=== PATIENT | male | born 1965 | race Caucasian/White ===

== ENCOUNTER 2019-12-27 07:48 | Inpatient (IN) | payer OTHER, SELFPAY ==
[2019-12-27] MEDS ORDERED: NA CHLORIDE 0.9% 3,000 ML ONE (20:14)
[2019-12-27] MEDS ORDERED: CEFTRIAXONE/SWI 1gm 1 GM/10 ML SYR ONE (20:14)
[2019-12-27] MEDS ORDERED: FAMOTIDINE 20 MG/2 ML VIAL IV ONE (20:14)
[2019-12-27] MEDS ORDERED: LIDOCAINE 1% MPF 30 ML VIAL ONE (20:29)
[2019-12-27] MEDS ORDERED: INSULIN -REGULAR HUMAN 50 UNIT/0.5 ML ML ONE ×2 (20:46→21:38)
[2019-12-27] MEDS ORDERED: LIDOCAINE VISCOUS 2% SOLN 15 ML UDC ONE (21:09)
[2019-12-27 21:17] LABS: Protime INR 1.02
[2019-12-27 21:32] LABS: Urine Blood 2+ (NEG); Urine Glucose 2+ (NEG); Urine Protein TRACE (NEG)
[2019-12-27 21:33] LABS: ALT/SGPT 33 U/L (12-78); AST/SGOT 14 U/L (15-37); Albumin 3.6 g/dL (3.4-5.0); Alkaline Phosphatase 138 U/L (45-117); BUN Blood Urea Nitrogen 79 mg/dL (7-18); Bilirubin Direct 0.2 mg/dL (0-0.2); Bilirubin Total 0.6 mg/dL (0.2-1.0); Lipase 4801 U/L (73-393); NT PRO-BNP 1418 pg/mL (<125); Protein, Total 7.5 g/dL (6.4-8.2); Sodium Level 124 mmol/L (136-145); Troponin (Emerg Dept Use Only) < 0.02 ng/mL (0.0-0.045)
[2019-12-27 21:37] LABS: Bicarbonate 5 mmol/L (21-32); Glucose Level 1242 mg/dL (74-106); Potassium 5.7 mmol/L (3.5-5.1)
[2019-12-27 21:38] LABS: Arterial Blood Carboxyhemoglob 1.6 % (0-1.5); Blood Gas Oxyhemoglobin 95.1 % (94-97); Blood O2 Saturation 97.6 % (92-98.5)
[2019-12-27 21:38] LABS: Magnesium 3.6 mg/dL (1.8-2.4)
[2019-12-27] MEDS ORDERED: NA CHLORIDE 0.9% 100 ML IV ONE (21:39)
[2019-12-27 21:48] LABS: Basophils % 0.4 % (0-1.3)
[2019-12-27 21:55] LABS: Absolute Lymphocytes (CBC) 1.6 K/uL (0.7-4.9); Hematocrit 49.2 % (39.6-49.0); Lymphocytes % 6.2 % (15.3-44.8); MPV 10.1 fL (7.6-11.3); RBC Red Blood Cell Count 5.12 M/uL (4.33-5.43)
[2019-12-27 22:19] LABS: Blood Morphology Comment NOT SEEN (NOT SEEN); Platelet Estimate ADEQ
[2019-12-27] MEDS ORDERED: ONDANSETRON 4 MG/2 ML VIAL ONE (23:12)
[2019-12-27 23:19] LABS: Potassium 5.1 mmol/L (3.5-5.1)
--- NOTE | 2019-12-27 23:43 | EDPHYS ---
Physician Documentation [facility] Name: Chicho De Los Santos Age: 54 yrs Sex: Male : 1965 Arrival Date: 12/27/2019 Time: 19:53 Bed 3 Private MD: ED Physician Alfredo Sanchez HPI: 12/26 21:26 This 54 yrs old Male presents to ER via EMS with complaints of High Blood lizzie Sugar. 21:26 This 54 yrs old Male presents to ER via EMS with complaints of High Blood lizzie Sugar. 21:26 The patient or guardian reports decreased level of consciousness, generalized fatigue, lizzie generalized weakness, hyperglycemia, polyuria. Onset: The symptoms/episode began/occurred 3 day(s) ago. Associated signs and symptoms: Pertinent positives: polydipsia. Current symptoms: In the emergency department the patient's symptoms have improved, mildly. The patient has not experienced similar symptoms in the past. Historical: - Allergies: 22:17 No Known Allergies; lp1 - Immunization history:: Adult Immunizations unknown. - Family history:: not pertinent. - Social history:: Smoking status: unknown. ROS: 21:29 Eyes: Negative for injury, pain, redness, and discharge, ENT: Negative for injury, lizzie pain, and discharge, Abdomen/GI: Negative for abdominal pain, nausea, vomiting, diarrhea, and constipation, Back: Negative for injury and pain, : Negative for injury, bleeding, discharge, and swelling, MS/Extremity: Negative for injury and deformity, Psych: Negative for depression, anxiety, suicide ideation, homicidal ideation, and hallucinations, Allergy/Immunology: Negative for hives, rash, and allergies, Hematologic/Lymphatic: Negative for swollen nodes, abnormal bleeding, and unusual bruising. 21:29 Constitutional: Positive for malaise, poor PO intake. 21:29 Cardiovascular: Positive for palpitations. 21:29 Respiratory: Positive for shortness of breath. 21:29 Neuro: Positive for altered mental status. 21:29 Unable to obtain ROS due to altered mental status, patient distress. Exam: 21:29 Head/Face: Normocephalic, atraumatic. Eyes: Pupils equal round and reactive to light, lizzie extra-ocular motions intact. Lids and lashes normal. Conjunctiva and sclera are non-icteric and not injected. Cornea within normal limits. Periorbital areas with no swelling, redness, or edema. ENT: Nares patent. No nasal discharge, no septal abnormalities noted. Tympanic membranes are normal and external auditory canals are clear. Oropharynx with no redness, swelling, or masses, exudates, or evidence of obstruction, uvula midline. Mucous membranes moist. Neck: Trachea midline, no thyromegaly or masses palpated, and no cervical lymphadenopathy. Supple, full range of motion without nuchal rigidity, or vertebral point tenderness. No Meningismus. Chest/axilla: Normal chest wall appearance and motion. Nontender with no deformity. No lesions are appreciated. Back: No spinal tenderness. No costovertebral tenderness. Full range of motion. Male : Normal genitalia with no discharge or lesions. MS/ Extremity: Pulses equal, no cyanosis. Neurovascular intact. Full, normal range of motion. Psych: Awake, alert, with orientation to person, place and time. Behavior, mood, and affect are within normal limits. 21:29 Constitutional: The patient appears in obvious distress, moderately distressed. 21:29 ENT: Mouth: Oral mucosa: dry, Posterior pharynx: no acute changes, Airway: normal, no evidence of obstruction. 21:29 Cardiovascular: Rate: tachycardic, Rhythm: regular, Pulses: Pulses are 3+ in bilateral radial, brachial, femoral, popliteal, posterior tibial and and dorsalis pedis arteries.. Heart sounds: normal, Edema: is not appreciated, JVD: is not appreciated. 21:29 Respiratory: moderate respiratory distress is noted, Respirations: labored breathing, that is moderate, Breath sounds: are clear throughout, Respiratory rate: 30 21:29 Abdomen/GI: Inspection: distension, Bowel sounds: active, Liver: no appreciated palpable abnormalities, Hernia: not appreciated. 21:39 Neuro: Orientation: to person, Not oriented to place, time, situation, Mentation: slow lizzie to respond, confused, Memory: unable to test, Cranial nerves: grossly normal, is grossly normal based on the patient's age, no acute changes, Cerebellar function: is grossly normal based on the patient's age, no acute changes, unable to test, Motor: moves all fours, Gait: not tested. seizure activity, is not displayed by the patient. Vital Signs: 19:56 BP 94 / 70; Pulse 99; Resp 30; Pulse Ox 96% on R/A; Weight 101.15 kg; Height 5 ft. 11 ea in. (180.34 cm); 20:00 BP 105 / 66; Pulse 99; Resp 35; Pulse Ox 99% on 2 lpm NC; rv 20:00 Temp 97.5(A); ea 20:32 BP 95 / 61; Pulse 97; Resp 30; Pulse Ox 99% on 2 lpm NC; rv 21:57 BP 135 / 72; Pulse 99; Resp 28; Pulse Ox 99% ; ea 22:54 BP 151 / 70; Pulse 98; Resp 26; Temp 95.4; Pulse Ox 98% on R/A; ea 23:19 BP 134 / 70; Pulse 99; Resp 24; Pulse Ox 99% on R/A; Pain 0/10; rv 23:20 BP 142 / 72; Pulse 97; Resp 24; Pulse Ox 100% ; ea 23:46 Temp 95.7; ea 12/27 01:07 BP 142 / 81; Pulse 97; Resp 23; Temp 96.7; Pulse Ox 99% ; ea 12/26 19:56 Body Mass Index 31.10 (101.15 kg, 180.34 cm) Procedures: 12/26 21:33 Central Line: the site was prepped with Betadine, in sterile fashion, a triple lumen lizzie catheter was inserted, in the right femoral vein, in 3 attempts. placement was verified, arterial puncture with bleeding, immediate pressure applied,good hemostasis. sandbags applied, the patient tolerated the procedure, well. 21:37 Central Line: another central line was attempted on the left side without difficulty lizzie under sterile conditions. MDM: 19:57 Patient medically screened. [facility] 21:39 Data reviewed: vital signs, nurses notes, lab test result(s), EKG, radiologic studies, lizzie CT scan, plain films. 12/26 19:59 Order name: Basic Metabolic Panel; Complete Time: 21:41 [facility] 12/26 19:59 Order name: CBC with Diff; Complete Time: 22:21 lizzie 12/26 19:59 Order name: LFT's; Complete Time: 21:41 lizzie 12/26 19:59 Order name: Magnesium; Complete Time: 21:41 [facility] 12/26 19:59 Order name: NT PRO-BNP; Complete Time: 21:41 [facility] 12/26 19:59 Order name: PT-INR; Complete Time: 21:41 [facility] 12/26 19:59 Order name: Troponin (emerg Dept Use Only); Complete Time: 21:41 [facility] 12/26 19:59 Order name: Lipase; Complete Time: 21:41 [facility] 12/26 19:59 Order name: ABG; Complete Time: 21:53 [facility] 12/26 19:59 Order name: Blood Culture Adult (2) [facility] 12/26 19:59 Order name: Urine Culture [facility] 12/26 20:07 Order name: Glucose, Ancillary Testing; Complete Time: 20:14 EDMS 12/26 20:14 Order name: Lactate; Complete Time: 21:41 [facility] 12/26 21:30 Order name: Urine Dipstick--Ancillary (enter results); Complete Time: 21:41 lp 12/26 22:19 Order name: Manual Differential; Complete Time: 22:21 EDMS 12/26 22:34 Order name: Triglycerides Level; Complete Time: 05:40 EDMS 12/26 22:44 Order name: Glucose, Ancillary Testing; Complete Time: 22:59 EDNE 12/26 22:57 Order name: Glucose 12/26 23:00 Order name: Chem 7; Complete Time: 23:35 [facility] 12/27 00:08 Order name: Acetone Level; Complete Time: 05:40 EDMS 12/27 00:08 Order name: Basic Metabolic Panel; Complete Time: 05:40 EDMS 12/27 00:08 Order name: Basic Metabolic Panel; Complete Time: 05:40 EDMS 04 00:09 Order name: Calcium Level EDMS 12/27 00:09 Order name: CBC with Automated Diff; Complete Time: 05:40 EDMS 12/27 00:09 Order name: Lipase; Complete Time: 05:40 EDMS 12/27 00:09 Order name: Magnesium; Complete Time: 05:40 EDMS 12/27 00:09 Order name: Phosphorus; Complete Time: 05:40 EDMS 12/27 00:10 Order name: NT PRO-BNP; Complete Time: 05:40 EDMS 12/27 00:10 Order name: Troponin I; Complete Time: 05:40 EDMS 12/26 19:59 Order name: XRAY Chest (1 view) [facility] 12/26 19:59 Order name: EKG; Complete Time: 20:01 [facility] 12/26 21:43 Order name: CT Traumagram (Head C Spine CAP wo con) [facility] 12/27 00:09 Order name: CONS Pharmacy Consult EDNE 12/27 00:09 Order name: NPO EDNE 12/27 00:40 Order name: Glucose 12/27 00:46 Order name: Glucose, Ancillary Testing; Complete Time: 05:40 EDNE 12/27 01:31 Order name: ABG ea 12/27 01:49 Order name: ABG Arterial Blood Gas; Complete Time: 05:40 EDNE 12/27 02:59 Order name: Glucose, Ancillary Testing; Complete Time: 05:40 EDNE 12/27 03:15 Order name: Glucose Level; Complete Time: 05:40 EDNE 12/27 03:55 Order name: Glucose 12/27 04:01 Order name: Glucose, Ancillary Testing; Complete Time: 05:40 EDNE 12/27 04:33 Order name: Glucose Level; Complete Time: 05:40 EDNE 12/27 05:25 Order name: Alcohol Serum/Plasma; Complete Time: 05:40 EDNE 12/27 05:47 Order name: Glucose, Ancillary Testing; Complete Time: 07:06 [facility] 12/27 07:01 Order name: Glucose, Ancillary Testing; Complete Time: 07:06 [facility] 12/27 07:28 Order name: RAD [facility] 12/26 19:59 Order name: Cardiac monitoring; Complete Time: 20:54 [facility] 12/26 19:59 Order name: EKG - Nurse/Tech; Complete Time: 20:54 [facility] 12/26 19:59 Order name: IV Saline Lock; Complete Time: 21:24 [facility] 12/26 19:59 Order name: Labs collected and sent; Complete Time: 20:54 [facility] 12/26 19:59 Order name: O2 Per Protocol; Complete Time: 20:54 [facility] 12/26 19:59 Order name: O2 Sat Monitoring; Complete Time: 20:54 [facility] 12/26 19:59 Order name: Urine Dipstick-Ancillary (obtain specimen); Complete Time: 21:30 [facility] 12/26 20:01 Order name: Central Line Kit; Complete Time: 20:09 [facility] 12/26 20:14 Order name: Moise; Complete Time: 20:54 [facility] Administered Medications: 21:15 Drug: NS 0.9% 1000 ml Route: IV; Rate: 1 bolus; Site: left femoral; ea 22:10 Follow up: IV Status: Completed infusion; IV Intake: 1000ml ea 21:15 Drug: NS 0.9% 1000 ml Route: IV; Rate: 1 bolus; Site: left femoral; ea 22:10 Follow up: Response: No adverse reaction; IV Status: Completed infusion; IV Intake: ea 1000ml 21:15 Drug: NS 0.9% 1000 ml Route: IV; Rate: 1 bolus; Site: left femoral; ea 22:10 Follow up: Response: No adverse reaction; IV Status: Completed infusion; IV Intake: ea 1000ml 21:20 Drug: Pepcid 20 mg Route: IVP; Site: left femoral; ea 23:30 Follow up: Response: No adverse reaction ea 21:24 Drug: Rocephin 1 grams Route: IV; Rate: per protocol; Site: left femoral; ea 22:21 Follow up: IV Status: Completed infusion ea 22:10 Drug: Insulin Regular Human 10 units {Co-Signature: william (Maximilian Dao RN).} Route: ea IVP; Site: left forearm; 23:00 Follow up: Response: No adverse reaction ea 22:24 Drug: NS 0.9% 1000 ml Route: IV; Rate: 125 ml/hr; Site: left femoral; ea 12/27 02:20 Follow up: IV Status: Completed infusion; Infusion continued upon admission 12/26 22:25 Drug: Meropenem 1 grams Route: IV; Rate: per protocol; Site: left femoral; ea 23:18 Follow up: IV Status: Completed infusion; IV Intake: 100ml rv 22:25 Drug: NS 0.9% 1000 ml Route: IV; Rate: 1 bolus; Site: left femoral; 12/27 01:00 Follow up: Response: No adverse reaction; IV Status: Completed infusion; IV Intake: ea 1000ml 12/26 23:19 Drug: Insulin Drip - (Insulin Regular Human 100 units, NS 0.9% 100 ml) {Co-Signature: akil thomas (Maximilian Dao RN).} Route: IV; Rate: calculated rate; Site: left femoral; 12/27 02:20 Follow up: IV Status: Infusion continued upon admission 12/26 23:20 Drug: Zofran (Ondansetron) 4 mg Route: IVP; Site: left femoral; ea 04/12 02:20 Follow up: Response: No adverse reaction ea 00:33 Drug: Zofran (Ondansetron) 4 mg Route: IVP; Site: left femoral; ea 01:16 Follow up: Response: No adverse reaction; Nausea unchanged ea 01:16 Drug: Phenergan 12.5 mg Route: IVP; Site: left femoral; ea 02:19 Follow up: Response: No adverse reaction ea 02:19 Follow up: Response: Vomiting decreased ea Disposition: 12/27/19 23:42 Hospitalization ordered by Karson Kerr for Inpatient Admission. Preliminary diagnosis are Altered mental status, unspecified, Diabetes mellitus due to underlying condition with ketoacidosis without coma, Elevated white blood cell count, Acute kidney failure, Hypotension, Hypothermia, Hyperkalemia, Acidosis - metabolic, Vomiting. - Bed requested for Intensive Care Unit. - Status is Inpatient Admission. sv - Condition is Serious. - Problem is new. - Symptoms have improved. Signatures: Dispatcher [employer] EDMS Frannie Reyes RN RN sv Webb, Martha RN Alfredo Lucero MD MD cha Pena, Laura, RN RN lp1 Abby Pierce RN Maximilian Ureña ea, RN RN rv Maximilian Dao RN rv Corrections: (The following items were deleted from the chart) 12/26 21:55 20:15 Head Brain Wo [id number].RAD.BRZ ordered. EDNE EDMS 22:43 22:34 Triglycerides Level ordered. EDNE EDNE 12/27 00:30 12/26 23:42 Hospitalization Ordered by Karson Kerr MD for Inpatient Admission. [facility] Preliminary diagnosis is Altered mental status, unspecified; Diabetes mellitus due to underlying condition with ketoacidosis without coma; Elevated white blood cell count; Acute kidney failure; Hypotension; Hypothermia; Hyperkalemia; Acidosis - metabolic. Bed requested for Intensive Care Unit. Status is Inpatient Admission. Condition is Serious. Problem is new. Symptoms have improved. [facility] 12/27 01:34 00:30 12/27/2019 23:42 Hospitalization Ordered by Karson Kerr MD for Inpatient Admission. Preliminary diagnosis is Altered mental status, unspecified; Diabetes mellitus due to underlying condition with ketoacidosis without coma; Elevated white blood cell count; Acute kidney failure; Hypotension; Hypothermia; Hyperkalemia; Acidosis - metabolic; Vomiting. Bed requested for Intensive Care Unit. Status is Inpatient Admission. Condition is Serious. Problem is new. Symptoms have improved. lizzie 05:31 01:34 12/27/2019 23:42 Hospitalization Ordered by Karson Kerr MD for Inpatient mw Admission. Preliminary diagnosis is Altered mental status, unspecified; Diabetes mellitus due to underlying condition with ketoacidosis without coma; Elevated white blood cell count; Acute kidney failure; Hypotension; Hypothermia; Hyperkalemia; Acidosis - metabolic; Vomiting. Bed requested for [facility] ER HOLD. Status is Inpatient Admission. Condition is Serious. Problem is new. Symptoms have improved. mw 07:47 05:31 12/27/2019 23:42 Hospitalization Ordered by Karson Kerr MD for Inpatient sv Admission. Preliminary diagnosis is Altered mental status, unspecified; Diabetes mellitus due to underlying condition with ketoacidosis without coma; Elevated white blood cell count; Acute kidney failure; Hypotension; Hypothermia; Hyperkalemia; Acidosis - metabolic; Vomiting. Bed requested for Intensive Care Unit. Status is Inpatient Admission. Condition is Serious. Problem is new. Symptoms have improved. mw
--- NOTE | 2019-12-27 23:43 | ER ---
Nurse's Notes [facility] Name: Chicho De Los Santos Age: 54 yrs Sex: Male : 1965 Arrival Date: 12/27/2019 Time: 19:53 Bed 3 Private MD: Diagnosis: Altered mental status, unspecified;Diabetes mellitus due to underlying condition with ketoacidosis without coma;Elevated white blood cell count;Acute kidney failure;Hypotension;Hypothermia;Hyperkalemia;Acidosis-metabolic;Vomiting Presentation: 12/26 19:56 Chief complaint: EMS states: Pt reports he has been vomiting since Sunday. EMS ea reports pt BGL read error, was hypotensive and tachypneic upon arrival. IO started on left humerus 1 L of NS was infused per EMS. Pt reports he is border line diabetic. Coronavirus screen: Proceed with normal triage. Ebola Screen: No symptoms or risks identified at this time. Initial Sepsis Screen: Does the patient meet any 2 criteria? No. Patient's initial sepsis screen is negative. Does the patient have a suspected source of infection? No. Patient's initial sepsis screen is negative. Risk Assessment: Do you want to hurt yourself or someone else? Patient reports no desire to harm self or others. Onset of symptoms was December 27, 2019. 19:56 Method Of Arrival: EMS: [facility] ea 19:56 Acuity: KIT 3 ea Triage Assessment: 20:03 General: Appears uncomfortable, Behavior is cooperative. Pain: Denies pain. ea Respiratory: Airway is patent Respiratory pattern is Kussmaul. Derm: Skin is pale, Skin temperature is cool. Historical: - Allergies: 22:17 No Known Allergies; lp1 - Immunization history:: Adult Immunizations unknown. - Family history:: not pertinent. - Social history:: Smoking status: unknown. Screenin:01 Abuse screen: Denies threats or abuse. Nutritional screening: No deficits noted. ea Tuberculosis screening: No symptoms or risk factors identified. Fall Risk IV access (20 points). Assessment: 20:00 General: Appears in no apparent distress. ill, Behavior is restless. rv 20:00 Pain: Denies pain. Neuro: Level of Consciousness is awake, alert. Cardiovascular: rv Patient's skin is warm and dry. Respiratory: Airway is patent Respiratory pattern is tachypnea mouth breather. 21:00 Neuro: Level of Consciousness is confused. rv 21:00 Reassessment: patient was restless during central insertion. rv 21:47 Reassessment: patient taken to CT scan. Abby RN with the patient. rv 22:25 Reassessment: Pt responds to verbal stimulus, and answers questions appropriately, pt ea is alert and oriented to self, place and situation. Respiration rate improved. Denies pain at this time. 23:27 Reassessment: Patient and/or family updated on plan of care and expected duration. Pain ea level reassessed. Pt resting with eyes closed, respirations improving. Pt responds to verbal stimulus, denies pain at this time. Pt reports nausea, medication order obtained, medication administered, pt tolerated well. 12/27 00:30 Reassessment: Patient and/or family updated on plan of care and expected duration. Pain ea level reassessed. Pt resting with eyes closed, pt respirations tachypneic but improved from initial rate. Pt denies pain at this time. Vital Signs: 12/26 19:56 BP 94 / 70; Pulse 99; Resp 30; Pulse Ox 96% on R/A; Weight 101.15 kg; Height 5 ft. 11 ea in. (180.34 cm); 20:00 BP 105 / 66; Pulse 99; Resp 35; Pulse Ox 99% on 2 lpm NC; rv 20:00 Temp 97.5(A); ea 20:32 BP 95 / 61; Pulse 97; Resp 30; Pulse Ox 99% on 2 lpm NC; rv 21:57 BP 135 / 72; Pulse 99; Resp 28; Pulse Ox 99% ; ea 22:54 BP 151 / 70; Pulse 98; Resp 26; Temp 95.4; Pulse Ox 98% on R/A; ea 23:19 BP 134 / 70; Pulse 99; Resp 24; Pulse Ox 99% on R/A; Pain 0/10; rv 23:20 BP 142 / 72; Pulse 97; Resp 24; Pulse Ox 100% ; ea 23:46 Temp 95.7; ea 12/27 01:07 BP 142 / 81; Pulse 97; Resp 23; Temp 96.7; Pulse Ox 99% ; ea 12/26 19:56 Body Mass Index 31.10 (101.15 kg, 180.34 cm) ea ED Course: 12/26 19:53 Patient arrived in ED. cl3 19:57 Alfredo Sanchez MD is Attending Physician. lizzie 20:01 Triage completed. ea 20:01 Maintain EMS IV. IO to left humerus. IV is patent. Patient maintains SpO2 saturation ea greater than 95% on room air. 20:02 Arm band placed on right wrist. Patient placed in an exam room, on a stretcher, on ea pulse oximetry. 20:02 Patient has correct armband on for positive identification. Bed in low position. Call ea light in reach. 20:47 Missed attempt(s): 20 gauge in left antecubital area. rv 21:00 Assisted provider with central line placement. Set up central line tray. Triple lumen ea line placed in left femoral. Line placed by Alfredo Sanchez MD Placement verified by blood return, Dressed with Tegaderm, Blood was collected. Patient tolerated well. 21:25 Abby Pierce, RN is Primary Nurse. ea 21:30 Moise cath inserted, using sterile technique, 16 Fr., Patient tolerated well. rv 21:36 Notified ED physician of a critical lab result(s). abnormal labs of sg glucose,magnesium,creatinine,potassium, and CO2. 21:56 Notified ED physician of a critical lab result(s). WBC 25.6. lp1 22:01 CT Traumagram (Head C Spine CAP wo con) In Process Unspecified. EDMS 22:08 XRAY Chest (1 view) In Process Unspecified. EDMS 22:27 Thermoregulation: Gabriela blanket applied. rv 23:19 Notified ED physician of a critical lab result(s). CO2 6, Glucose 956. lp1 23:36 Karson Kerr MD is Hospitalizing Provider. [facility] 12/27 01:16 Patient admitted, IV remains in place. ea Administered Medications: 12/26 21:15 Drug: NS 0.9% 1000 ml Route: IV; Rate: 1 bolus; Site: left femoral; ea 22:10 Follow up: IV Status: Completed infusion; IV Intake: 1000ml ea 21:15 Drug: NS 0.9% 1000 ml Route: IV; Rate: 1 bolus; Site: left femoral; ea 22:10 Follow up: Response: No adverse reaction; IV Status: Completed infusion; IV Intake: ea 1000ml 21:15 Drug: NS 0.9% 1000 ml Route: IV; Rate: 1 bolus; Site: left femoral; ea 22:10 Follow up: Response: No adverse reaction; IV Status: Completed infusion; IV Intake: ea 1000ml 21:20 Drug: Pepcid 20 mg Route: IVP; Site: left femoral; ea 23:30 Follow up: Response: No adverse reaction ea 21:24 Drug: Rocephin 1 grams Route: IV; Rate: per protocol; Site: left femoral; ea 22:21 Follow up: IV Status: Completed infusion ea 22:10 Drug: Insulin Regular Human 10 units {Co-Signature: william (Maximilian Dao RN).} Route: ea IVP; Site: left forearm; 23:00 Follow up: Response: No adverse reaction ea 22:24 Drug: NS 0.9% 1000 ml Route: IV; Rate: 125 ml/hr; Site: left femoral; ea 12/27 02:20 Follow up: IV Status: Completed infusion; Infusion continued upon admission ea 12/26 22:25 Drug: Meropenem 1 grams Route: IV; Rate: per protocol; Site: left femoral; ea 23:18 Follow up: IV Status: Completed infusion; IV Intake: 100ml rv :25 Drug: NS 0.9% 1000 ml Route: IV; Rate: 1 bolus; Site: left femoral; rv 12/27 01:00 Follow up: Response: No adverse reaction; IV Status: Completed infusion; IV Intake: ea 1000ml 12/26 23:19 Drug: Insulin Drip - (Insulin Regular Human 100 units, NS 0.9% 100 ml) {Co-Signature: akil thomas (Maximilian Dao RN).} Route: IV; Rate: calculated rate; Site: left femoral; 12/27 02:20 Follow up: IV Status: Infusion continued upon admission ea 12/26 23:20 Drug: Zofran (Ondansetron) 4 mg Route: IVP; Site: left femoral; ea 12/27 02:20 Follow up: Response: No adverse reaction ea 00:33 Drug: Zofran (Ondansetron) 4 mg Route: IVP; Site: left femoral; ea 01:16 Follow up: Response: No adverse reaction; Nausea unchanged ea 01:16 Drug: Phenergan 12.5 mg Route: IVP; Site: left femoral; ea 02:19 Follow up: Response: No adverse reaction ea 02:19 Follow up: Response: Vomiting decreased ea Intake: 12/26 22:10 IV: 1000ml; Total: 1000ml. ea 22:10 IV: 1000ml; Total: 2000ml. ea 22:10 IV: 1000ml; Total: 3000ml. ea 23:18 IV: 100ml; Total: 3100ml. rv 23:24 IV: 4000ml; Total: 7100ml. rv 12/27 01:00 IV: 1000ml; Total: 8100ml. ea Output: 12/26 23:24 Urine: 750ml; Total: 750ml. rv Outcome: 23:42 Decision to Hospitalize by Provider. lizzie 12/27 00:00 Instructed on the need for admit. ea 02:19 Admitted to ER Hold. Please see [facility] for further documentation. ea 02:19 Condition: stable 07:47 Patient left the ED. sv Signatures: Dispatcher [employer] Frannie Beltre RN Ritchie Magaña RN Alfredo Hernandez MD MD cha Pena, Laura RN RN lp1 Abby Pierce RN RN ea Vicente, Ronaldo, RN RN rv Lewis, Charde cl3 Maximilian thomas
[2019-12-28] MEDS ORDERED: NACHLORIDE 0.45% 1,000 ML IV SCH ×2 (00:02→00:10)
[2019-12-28] MEDS ORDERED: MORPHINE 2 MG/ML SYR IV PRN (00:07)
[2019-12-28] MEDS ORDERED: INSULIN -REGULAR HUMAN 100 UNIT in NA CHLORIDE 0.9% 100 ML IV SCH (00:15)
--- NOTE | 2019-12-28 00:16 | P.HP ---
Certification for Inpatient Patient admitted to: Inpatient With expected LOS: >2 Midnights Patient will require the following post-hospital care: None Practitioner: I am a practitioner with admitting privileges, knowledge of patient current condition, hospital course, and medical plan of care. Services: Services provided to patient in accordance with Admission requirements found in Title 42 Section 412.3 of the Code of Federal Regulations Patient History Date of Service: 12/27/19 Reason for admission: DKA History of Present Illness: Patient is a 54-year-old gentleman who came to the hospital with shortness of breath. Patient had also been confused. According to the patient he has been having intractable nausea and vomiting for the last 3 days. He came into the hospital because he was short of breath and very confused. In the emergency room his workup revealed that he was severely acidotic and in diabetic ketoacidosis. Patient was hydrated and started on an insulin drip. His blood sugars were greater than 1200. Will need to lower this down slowly because of the uncertainty as to how long his sugars have been this high. Risk of cerebral edema if not corrected gradually. Will monitor neurologic status closely. He does answer most of my questions appropriately. But he is very lethargic. The nurse states that he has been responding to her appropriately as well. Patient's BNP was also found to be elevated. He denies any history of cardiac disease. Will need to monitor his volume status closely as normally we would aggressively hydrate patient in diabetic ketoacidosis, but will need to monitor his BNP and he will need a echocardiogram prior to discharge to evaluate his cardiac status. Troponin is within normal limits. Incidentally, patient did have an elevated lipase level. We will check his alcohol level and we will get official report of CT scan. At this time he will be admitted to ICU for close observation. Allergies No Known Allergies Allergy (Unverified 12/28/19 02:26) - Past Medical/Surgical History Past Medical History: Patient denies medical history Past Surgical History: Patient denies surgical history - Family History Father Family History: Reviewed- Non-Contributory - Social History Smoking Status: Current every day smoker Alcohol use: No CD- Drugs: No Review of Systems 10-point ROS is otherwise unremarkable Physical Examination - Vital Signs Temperature: 99 F Blood Pressure: 120/80 Pulse: 110 Respirations: 18 Pulse Ox (%): 96 - Physical Exam General: Alert, In no apparent distress, Oriented x3, Acute distress, Confused HEENT: Atraumatic, PERRLA, Mucous membr. moist/pink, EOMI, Sclerae nonicteric Neck: Supple, 2+ carotid pulse no bruit, No LAD, Without JVD or thyroid abnormality Respiratory: Clear to auscultation bilaterally, Normal air movement Cardiovascular: Regular rate/rhythm, Normal S1 S2, No murmurs Gastrointestinal: Normal bowel sounds, Soft and benign, Non-distended, Tender ness (epigastric) Musculoskeletal: No clubbing, No swelling, No tenderness Integumentary: No rashes Neurological: Normal speech, Normal tone, Sensation intact, Cranial nerves 3-12 intact, Abnormal gait, Abnormal strength, Abnormal affect Lymphatics: No axilla or inguinal lymphadenopathy - Studies Laboratory Data (last 24 hrs) 12/27/19 22:33: Triglycerides Cancelled 12/27/19 22:30: Sodium 133 L, Potassium 5.1, BUN 77 H, Creatinine 3.89 H, Glucose 956 H* 12/27/19 21:40: WBC 25.6 H*, Hgb 14.6, Hct 49.2 H, Plt Count 219 12/27/19 21:00: PT 12.0, INR 1.02 12/27/19 21:00: Sodium 124 L, Potassium 5.7 H*, BUN 79 H, Creatinine 4.61 H, Glucose 1242 H*, Magnesium 3.6 H*, Total Bilirubin 0.6, AST 14 L, ALT 33, Alkaline Phosphatase 138 H, Lipase 4801 H Assessment & Plan - Problems (Diagnosis) (1) DKA (diabetic ketoacidoses) Current Visit: Yes Status: Acute (2) Acute pancreatitis Current Visit: Yes Status: Acute (3) OSIEL (acute kidney injury) Current Visit: Yes Status: Acute (4) Elevated brain natriuretic peptide (BNP) level Current Visit: Yes Status: Acute - Plan Plan: 1. IV hydration; monitor renal function closely; if no improvement then Nephrology consult 2. Insulin drip; gradually lower BS by roughly 100mg/dl every hr 3. Monitor electrolytes closely; monitor lipase and check TG 4. Replace electrolytes as needed 5. Changed IV fluids to D51/2NS once blood sugars are less than 250 6. Once anion gap is closed we will see if patient can tolerate a diet and if he does then we can give him his long-acting insulin and stop the insulin drip an hour later. Hydration we will depend on patient's volume status 7. Neurochecks 8. Monitor cardiac status closely 9. GI and DVT prophylaxis Discharge Plan: Home Plan to discharge in: Greater than 2 days - Advance Directives Does patient have a Living Will: No Does patient have a Durable POA for Healthcare: No - Code Status/Comfort Care Code Status Assessed: Yes Code Status: Full Code Critical Care: No Time Spent Managing PTS Care (In Minutes): 60
[2019-12-28 01:18] LABS: Potassium 4.5 mmol/L (3.5-5.1)
[2019-12-28] MEDS ORDERED: PROMETHAZINE INJ 25 MG/ML AMP ONE (01:18)
[2019-12-28 01:48] LABS: Arterial Blood Carboxyhemoglob 1.6 % (0-1.5); Blood Gas Oxyhemoglobin 92.5 % (94-97)
[2019-12-28] MEDS: NA CHLORIDE 0.9% 250 ML IV SCH ×2 (02:00→06:00)
[2019-12-28] MEDS ORDERED: D5 0.45 NS 1,000 ML IV SCH ×2 (04:00)
[2019-12-28] MEDS ORDERED: PIPER/TAZO/NS 3.375gm 3.375 GM/100 ML BAG IV SCH (04:00)
[2019-12-28 05:05] LABS: Absolute Lymphocytes (CBC) 0.7 K/uL (0.7-4.9); Basophils % 0.2 % (0-1.3); Hematocrit 46.4 % (39.6-49.0); Lymphocytes % 4.3 % (15.3-44.8); MPV 9.6 fL (7.6-11.3)
[2019-12-28 05:35] LABS: BUN Blood Urea Nitrogen 66 mg/dL (7-18); Glucose Level 399 mg/dL (74-106); Lipase 1912 U/L (73-393); Magnesium 3.2 mg/dL (1.8-2.4); NT PRO-BNP 876 pg/mL (<125); Phosphorus 1.2 mg/dL (2.5-4.9); Potassium 3.8 mmol/L (3.5-5.1); Sodium Level 145 mmol/L (136-145); Troponin I < 0.02 ng/mL (0.0-0.045)
[2019-12-28 05:36] LABS: Bicarbonate 13 mmol/L (21-32)
[2019-12-28] MEDS ORDERED: PIPER/TAZO/NS 3.375gm 3.375 GM/100 ML BAG ONE (05:40)
[2019-12-28] MEDS: D5 0.45 NS 1,000 ML IV SCH ×3 (06:00→22:37)
--- NOTE | 2019-12-28 07:27 | RAD REPORT ---
EXAM DESCRIPTION: Esha Single View12/27/2019 10:08 pm CLINICAL HISTORY: Cough COMPARISON: none FINDINGS: The lungs appear clear of acute infiltrate. The heart is borderline enlarged IMPRESSION: No acute abnormalities displayed
--- NOTE | 2019-12-28 07:28 | RAD REPORT ---
EXAM DESCRIPTION: Esha Single View12/28/2019 6:27 am CLINICAL HISTORY: Cough COMPARISON: December 26 FINDINGS: The lungs appear clear of acute infiltrate. The heart is borderline enlarged IMPRESSION: No acute abnormalities displayed
[2019-12-28] MEDS: ENOXAPARIN 30 MG/0.3 ML SQ SCH (08:40)
[2019-12-28] MEDS: ONDANSETRON 4 MG/2 ML VIAL IV PRN ×2 (08:40→18:10)
--- NOTE | 2019-12-28 08:50 | P.PN ---
Subjective Date of Service: 12/28/19 (Hospitalist) Chief Complaint: DKA Subjective: Improving (Patient is developing altered mental status agitation abdominal discomfort has improved still is in DKA he), Worsening Review of Systems is unable to be obtained General: Weakness Gastrointestinal: Nausea, Abdominal Pain Physical Examination - Vital Signs Temperature: 98.3 F Blood Pressure: 131/89 Pulse: 110 Respirations: 38 Pulse Ox (%): 97 - Physical Exam General: Alert, Moderate distress HEENT: Atraumatic Neck: 2+ carotid pulse no bruit Respiratory: Clear to auscultation bilaterally Cardiovascular: No edema Gastrointestinal: Normal bowel sounds, Tenderness (Mild epigastric tenderness) - Studies Laboratory Data (last 24 hrs) 12/27/19 22:57: Glucose Cancelled 12/27/19 22:33: Triglycerides Cancelled 12/27/19 22:30: Sodium 133 L, Potassium 5.1, BUN 77 H, Creatinine 3.89 H, Glucose 956 H* 12/27/19 21:40: WBC 25.6 H*, Hgb 14.6, Hct 49.2 H, Plt Count 219 12/27/19 21:00: PT 12.0, INR 1.02 12/27/19 21:00: Sodium 124 L, Potassium 5.7 H*, BUN 79 H, Creatinine 4.61 H, Glucose 1242 H*, Magnesium 3.6 H*, Total Bilirubin 0.6, AST 14 L, ALT 33, Alkaline Phosphatase 138 H, Lipase 4801 H Assessment & Plan - Problems (Diagnosis) (1) DKA (diabetic ketoacidoses) Current Visit: Yes Status: Acute Plan: Patient is in DKA slowly improving continue to monitor bicarbonate continue with antibiotic Qualifiers: Diabetes mellitus type: type 1 Diabetes mellitus complication detail: without coma Qualified Code(s): E10.10 - Type 1 diabetes mellitus with ketoacidosis without coma (2) Acute pancreatitis Current Visit: Yes Status: Acute Plan: Patient's lipase is declining continue to monitor patient's vital signs are stable (3) Sleep apnea Current Visit: Yes Status: Acute Plan: Patient has a history of sleep apnea is becoming more confused and agitated of ordered BiPAP
[2019-12-28 09:19] LABS: Potassium 3.6 mmol/L (3.5-5.1)
[2019-12-28 09:20] LABS: Magnesium 3.1 mg/dL (1.8-2.4); Phosphorus 1.4 mg/dL (2.5-4.9)
[2019-12-28] MEDS ORDERED: POTASSIUM PHOS IN 0.9 % NACL 15 MMOL/250 ML BAG IV ONE (09:45)
[2019-12-28] MEDS ORDERED: HYDROMORPHONE HCL 2 MG/ML inj IV PRN (09:46)
[2019-12-28] MEDS: LORazepam 2 MG/ML VIAL IV PRN ×2 (09:59→18:10)
[2019-12-28] MEDS: CEFTRIAXONE/SWI 1gm 1 GM/10 ML SYR IVP SCH (09:59)
--- NOTE | 2019-12-28 10:48 | RAD REPORT ---
EXAM DESCRIPTION: CT - Head C Spine Cap Wo Con - 12/28/2019 7:07 am CLINICAL HISTORY: The patient is 54 years old and is Male; WEAKNESS TECHNIQUE: Axial computed tomography images of the head/brain and cervical spine without intravenous contrast. Sagittal and coronal reformatted images were created and reviewed. This CT exam was pe rformed using one or more of the following dose reduction techniques: automated exposure control, a djustment of the mA and/or kV according to patient size, and/or use of iterative reconstruction techn ique. COMPARISON: No relevant prior studies available. FINDINGS: BRAIN: Unremarkable. No hemorrhage. No significant white matter disease. No edema. VENTRICLES: Unremarkable. No ventriculomegaly. SKULL: No acute fracture. SINUSES: Unremarkable as visualized. No acute sinusitis. MASTOID AIR CELLS: Unremarkable as visualized. No mastoid effusion. VERTEBRAE: The vertebral body heights and alignment are maintained. No acute fracture. DISCS/SPINAL CANAL/NEURAL FORAMINA: The intervertebral disc spaces are maintained. No spinal can al stenosis. SOFT TISSUES: The soft tissues are normal. LUNG APICES: Unremarkable as visualized. IMPRESSION: No acute intracranial findings. No fracture or malalignment of the cervical spine EXAM DESCRIPTION: CT Chest, Abdomen and Pelvis Without Intravenous Contrast CLINICAL HISTORY: The patient is 54 years old and is Male; WEAKNESS TECHNIQUE: Axial computed tomography images of the chest, abdomen and pelvis without intravenous con trast. Sagittal and coronal reformatted images were created and reviewed. This CT exam was perfor med using one or more of the following dose reduction techniques: automated exposure control, adjus tment of the mA and/or kV according to patient size, and/or use of iterative reconstruction technique . COMPARISON: No relevant prior studies available. FINDINGS: ARTIFACTS: The exam is suboptimal secondary to motion artifact. CHEST: LUNGS: The lungs are clear of focal opacity, mass, or consolidation. PLEURAL SPACE: Unremarkable. No significant effusion. No pneumothorax. HEART: The heart is prominent. There is no pericardial effusion. ABDOMEN: LIVER: There is a diffuse decrease in hepatic parenchymal density, consistent with fatty infiltr ation. GALLBLADDER AND BILE DUCTS: No calcified stones. No ductal dilation. PANCREAS: Fatty infiltration of the pancreas is present. No ductal dilation. SPLEEN: Unremarkable. ADRENALS: Unremarkable. No mass. KIDNEYS AND URETERS: An exophytic 4.7 cm right renal cyst is present. No follow-up imaging is re commended. There is no hydronephrosis or hydroureter of either kidney. No obstructing renal or ureter al calculus is seen. STOMACH AND BOWEL: The stomach is well distended with fluid and air. The small bowel is decompre ssed. Minimal stool is noted within the right colon. The remainder of the colon is relatively decompr essed. There is no mucosal thickening or evidence of bowel obstruction. PELVIS: APPENDIX: The appendix is normal in caliber without surrounding inflammation. BLADDER: The bladder is decompressed with a Moise catheter in place. No stones. REPRODUCTIVE: Unremarkable as visualized. CHEST, ABDOMEN and PELVIS: INTRAPERITONEAL SPACE: Unremarkable. No significant fluid collection. No free air. BONES/JOINTS: There is no acute fracture of the visualized axial and appendicular skeleton. SOFT TISSUES: There are small bilateral fat containing inguinal hernias. Minimal fat stranding along the right inguinal region which may be secondary to recent attempt at line placement. VASCULATURE: Unremarkable. No aortic aneurysm. LYMPH NODES: Unremarkable. No enlarged lymph nodes. TUBES, LINES AND DEVICES: A left femoral vein catheter is in place. IMPRESSION: No acute findings on this noncontrasted CT of the chest, abdomen and pelvis to explain t he patient's symptoms. Electronically signed by: Mandy Medley MD 12/27/2019 11:27 PM CDT Due to temporary technical issues with the PACS/Fluency reporting system, reports are being signed by the in house radiologist as a courtesy to ensure prompt reporting. The interpreting radiologist is f ully responsible for the content of the report.
[2019-12-28 13:07] LABS: Potassium 4.2 mmol/L (3.5-5.1)
[2019-12-28 14:38] LABS: Blood Gas Oxyhemoglobin 96.4 % (94-97); Blood O2 Saturation 98.4 % (92-98.5)
[2019-12-28] MEDS ORDERED: PNEUMOCOCCAL VACCINE 0.5 ML IMVAC ONE (15:00)
[2019-12-28 17:18] LABS: Potassium 4.3 mmol/L (3.5-5.1)
[2019-12-28 22:30] LABS: Potassium 3.6 mmol/L (3.5-5.1)
[2019-12-28] MEDS ORDERED: METOPROLOL TAR 25 MG TAB PO ONE (22:53)
[2019-12-28] MEDS: D5W 1,000 ML IV SCH (23:03)
[2019-12-28] MEDS ORDERED: KCL 20 MEQ/100 mL IVPB 20 MEQ/100 ML BAG IV SCH (23:45)
[2019-12-29 05:42] VITALS: BMI 31.6
[2019-12-29] MEDS: METOPROLOL TAR 25 MG TAB PO SCH ×2 (05:46→17:12)
[2019-12-29 06:19] LABS: Absolute Lymphocytes (CBC) 0.7 K/uL (0.7-4.9); Basophils % 0.1 % (0-1.3); Lymphocytes % 6.8 % (15.3-44.8); MPV 10.4 fL (7.6-11.3); RBC Red Blood Cell Count 4.79 M/uL (4.33-5.43)
[2019-12-29 06:35] LABS: BUN Blood Urea Nitrogen 57 mg/dL (7-18); Bicarbonate 18 mmol/L (21-32); Glucose Level 218 mg/dL (74-106); HDL Cholesterol 30 mg/dL (40-60); LDL Cholesterol, Calculated 79 (<130); Lipase 314 U/L (73-393); Phosphorus 2.1 mg/dL (2.5-4.9); Potassium 3.6 mmol/L (3.5-5.1); Sodium Level 148 mmol/L (136-145)
[2019-12-29 06:43] LABS: Thyroid Stimulating Hormone 0.061 uIU/mL (0.360-3.740)
--- NOTE | 2019-12-29 07:23 | EKG ---
Test Date: 2019-12-27 Test Time: 20:53:50 Living Advisor: RV MEASUREMENT RESULTS: Intervals: Rate: 99 GA: 144 QRSD: 92 QT: 388 QTc: 497 [place]: P: 26 GA: 144 QRS: 2 T: 19 INTERPRETIVE STATEMENTS: Normal sinus rhythm Prolonged QT Abnormal ECG No previous ECG available for comparison Electronically Signed On 12-29-19 07:22:13 CDT by Víctor Ariza
[2019-12-29] MEDS: CEFTRIAXONE/SWI 1gm 1 GM/10 ML SYR IVP SCH (08:25)
[2019-12-29] MEDS: D5W 1,000 ML IV SCH ×2 (08:25→17:49)
[2019-12-29] MEDS: ENOXAPARIN 30 MG/0.3 ML SQ SCH (08:26)
--- NOTE | 2019-12-29 08:41 | RAD REPORT ---
EXAM DESCRIPTION: Esha Single View12/29/2019 6:27 am CLINICAL HISTORY: Congestion COMPARISON: December 27 FINDINGS: Left base is hazy probably secondary to overlying soft tissue. Less likely an infiltrate. Otherwise the lungs appear clear of acute infiltrate. The heart remains enlarged
--- NOTE | 2019-12-29 08:49 | RAD REPORT ---
EXAM DESCRIPTION: US - Renal Ultrasound-Complete - 12/29/2019 8:19 am CLINICAL HISTORY: . Acute renal insufficiency COMPARISON: None. FINDINGS: The right kidney measures 12 cm with a mildly increased echotexture. 5 centimeter cyst The left kidney measures 11 cm with a mildly increased echotexture. Hydronephrosis is not seen. IMPRESSION: Mildly increased renal echotexture consistent with parenchymal disease 5 centimeter right renal cyst
[2019-12-29 12:39] LABS: Potassium 3.3 mmol/L (3.5-5.1)
[2019-12-29] MEDS ORDERED: GLUCAGON 1 MG/VIAL IM PRN (13:14)
[2019-12-29] MEDS ORDERED: D50W 25 GM/50 ML SYRINGE/VIAL IV PRN (13:14)
[2019-12-29] MEDS: KCL 20 MEQ/100 mL IVPB 20 MEQ/100 ML BAG IV SCH ×2 (13:29→16:04)
--- NOTE | 2019-12-29 14:24 | P.CNS ---
Date of Consult: 12/29/19 Reason for Consult: OSIEL Requesting Physician: Yung Perez Chief Complaint: DKA History of Present Illness: Patient is a 54-year-old gentleman who came to the hospital with shortness of breath. Patient had also been confused. According to the patient he has been having intractable nausea and vomiting for the last 3 days. He came into the hospital because he was short of breath and very confused. In the emergency room his workup revealed that he was severely acidotic and in diabetic ketoacidosis. Patient was hydrated and started on an insulin drip. His blood sugars were greater than 1200. Will need to lower this down slowly because of the uncertainty as to how long his sugars have been this high. Risk of cerebral edema if not corrected gradually. Will monitor neurologic status closely. He does answer most of my questions appropriately. But he is very lethargic. The nurse states that he has been responding to her appropriately as well. Patient's BNP was also found to be elevated. He denies any history of cardiac disease. Will need to monitor his volume status closely as normally we would aggressively hydrate patient in diabetic ketoacidosis, but will need to monitor his BNP and he will need a echocardiogram prior to discharge to evaluate his cardiac status. Troponin is within normal limits. Incidentally, patient did have an elevated lipase level. We will check his alcohol level and we will get official report of CT scan. 21:26 This 54 yrs old Male presents to ER via EMS with complaints of High Blood lizzie Sugar. 21:26 This 54 yrs old Male presents to ER via EMS with complaints of High Blood lizzie Sugar. 21:26 The patient or guardian reports decreased level of consciousness, generalized fatigue, lzizie generalized weakness, hyperglycemia, polyuria. Onset: The symptoms/episode began/occurred 3 day(s) ago. Associated signs and symptoms: Pertinent positives: polydipsia. Current symptoms: In the emergency department the patient's symptoms have improved, mildly. The patient has not experienced similar symptoms in the past. Allergies No Known Allergies Allergy (Unverified 12/28/19 02:26) Home medications list reviewed: Yes Home Medications: NK [No Home Meds] 12/28/19 - Past Medical/Surgical History Diabetic: Yes - Family History Father Family History: Reviewed- Non-Contributory - Social History Smoking Status: Unknown if ever smoked Alcohol use: No CD- Drugs: No Review of Systems 10-point ROS is otherwise unremarkable General: Weakness, Malaise Physical Examination Temp Pulse Resp BP Pulse Ox 97 F 86 22 H 129/82 97 12/29/19 04:00 12/29/19 13:00 12/29/19 13:00 12/29/19 13:00 12/29/19 13:00 General: In no apparent distress, Cooperative HEENT: Atraumatic Neck: Supple Respiratory: Clear to auscultation bilaterally Cardiovascular: No edema, Regular rate/rhythm Gastrointestinal: Soft and benign, Non-distended Musculoskeletal: No clubbing, No contractures Integumentary: No rashes, No cyanosis Neurological: Normal speech Blood work reviewed in the chart. Na 149; K 3.3 Imagings Data: EXAM DESCRIPTION: Esha Single View12/29/2019 6:27 am CLINICAL HISTORY: Congestion COMPARISON: December 27 FINDINGS: Left base is hazy probably secondary to overlying soft tissue. Less likely an infiltrate. Otherwise the lungs appear clear of acute infiltrate. The heart remains enlarged Conclusions/Impression: A/ OSIEL in the setting of hypovolemia improving with IVF. Hypernatremia/ Dehydration Hypokalemia Hypocalcemia HypoPO4 DM I with DKA P/ Continue current POC and Medications. Continue IVF. Encourage free water intake. Replete lytes. Start calictriol. Titrate insulin as needed. No NSAIDs. AM labs. Daily weight. Thank you kindly for the consultation.
[2019-12-29] MEDS: INSULIN -REGULAR HUMAN 50 UNIT/0.5 ML ML SQ SCH ×2 (17:11→20:26)
[2019-12-29 20:50] LABS: Potassium 3.8 mmol/L (3.5-5.1)
[2019-12-29] MEDS ORDERED: INSULIN GLARGINE 100 UNITS/ML SQ SCH (21:00)
[2019-12-29] MEDS ORDERED: KCL 20 MEQ/100 mL IVPB 20 MEQ/100 ML BAG IV SCH (22:00)
[2019-12-30] MEDS: NA CHLORIDE 0.9% 1,000 ML IV SCH ×3 (00:24→21:10)
[2019-12-30] MEDS: METOPROLOL TAR 25 MG TAB PO SCH ×2 (05:01→17:15)
[2019-12-30 05:28] LABS: Absolute Lymphocytes (CBC) 0.8 K/uL (0.7-4.9); Basophils % 0.3 % (0-1.3); Hematocrit 41.8 % (39.6-49.0); Lymphocytes % 8.9 % (15.3-44.8); MPV 10.2 fL (7.6-11.3); RBC Red Blood Cell Count 4.78 M/uL (4.33-5.43)
[2019-12-30 05:37] LABS: Magnesium 2.9 mg/dL (1.8-2.4); Phosphorus 2.1 mg/dL (2.5-4.9); Potassium 4.1 mmol/L (3.5-5.1)
[2019-12-30] MEDS: POTASS/SODIUM PHOSPHATE 1 PKT POWD.PACK PO SCH ×3 (05:45→08:17)
[2019-12-30] MEDS: INSULIN -REGULAR HUMAN 50 UNIT/0.5 ML ML SQ SCH ×4 (06:39→21:39)
--- NOTE | 2019-12-30 07:58 | ECHO ---
HEIGHT: 5 ft 11 in WEIGHT: 226 lb 8 oz DATE OF STUDY: 12/29/[address]: Karson Kerr MD 2-DIMENSIONAL: YES M.MODE: YES DOPPLER: YES COLOR FLOW: YES TDS: YES PORTABLE: YES DEFINITY: NO BUBBLE STUDY: NO DIAGNOSIS: CONGESTIVE HEART FAILURE CARDIAC HISTORY: CATHERIZATION: NO SURGERY: NO PROSTHETIC VALVE: NO PACEMAKER: NO MEASUREMENTS (cm) DIASTOLIC (NORMALS) SYSTOLIC (NORMALS) IVSd 1.0 (0.6-1.2) LA Diam 2.7 (1.9-4.0) LVEF 61% LVIDd 4.6 (3.5-5.7) LVIDs 3.1 (2.0-3.5) %FS 32% LVPWd 1.1 (0.6-1.2) Ao Diam 3.0 (2.0-3.7) 2 DIMENSIONAL ASSESSMENT: RIGHT ATRIUM: NORMAL LEFT ATRIUM: NORMAL RIGHT VENTRICLE: NORMAL LEFT VENTRICLE: NORMAL TRICUSPID VALVE: NORMAL MITRAL VALVE: NORMAL PULMONIC VALVE: NORMAL AORTIC VALVE: NORMAL PERICARDIAL EFFUSION: NONE AORTIC ROOT: NORMAL LEFT VENTRICULAR WALL MOTION: NORMAL DOPPLER/COLOR FLOW: MILD TRICUSPID REGURGITATION. COMMENTS: NORMAL 2D ECHOCARDIOGRAM. MILD TRICUSPID REGURGITATION. NORMAL RIGHT VENTRICULAR SYSTOLIC PRESSURE. NO WALL MOTION ABNORMALITY. NO EFFUSION. TECHNOLOGIST: Jade XIAO
[2019-12-30] MEDS: ENOXAPARIN 30 MG/0.3 ML SQ SCH (08:17)
[2019-12-30] MEDS ORDERED: SODIUM PHOSPHATE 15 MM in NA CHLORIDE 0.9% 250 ML IV ONE (09:30)
[2019-12-30] MEDS ORDERED: GLUCAGON 1 MG/VIAL IM PRN (10:21)
[2019-12-30] MEDS ORDERED: D50W 25 GM/50 ML SYRINGE/VIAL IV PRN (10:21)
--- NOTE | 2019-12-30 11:02 | P.PN ---
Subjective Date of Service: 12/30/19 Chief Complaint: DKA Subjective: No new changes Physical Examination - Vital Signs Temperature: 96.7 F Blood Pressure: 128/79 Pulse: 98 Respirations: 23 Pulse Ox (%): 97 - Physical Exam General: Oriented x3, Other (Still lethargic) HEENT: Atraumatic, Normocephalic Respiratory: Clear to auscultation bilaterally (No wheezing or crackles) Cardiovascular: No edema, Normal pulses, Normal S1 S2 Gastrointestinal: Normal bowel sounds, Soft and benign, Non-distended (good strenght and ROM in all 4 extremities) Integumentary: No rashes, No breakdown, No tenderness/swelling Neurological: Normal speech, Normal strength at 5/5 x4 extr, Normal tone, Sensation intact - Studies Microbiology Data (last 24 hrs): 12/27/19 21:15 Clean Catch Urine [place] Count - Final 12/27/19 21:15 Clean Catch Urine - Final No growth. Assessment & Plan - Problems (Diagnosis) (1) DKA (diabetic ketoacidoses) Current Visit: Yes Status: Acute Qualifiers: Diabetes mellitus type: type 1 Diabetes mellitus complication detail: without coma Qualified Code(s): E10.10 - Type 1 diabetes mellitus with ketoacidosis without coma (2) Acute pancreatitis Current Visit: Yes Status: Acute (3) OSIEL (acute kidney injury) Current Visit: Yes Status: Acute (4) Sleep apnea Current Visit: Yes Status: Acute Physician Review Additional Text: Assessment Patient is a 54-year-old male with obesity, type 2 diabetes mellitus, obstructive sleep apnea who presented to the ER was found to be in diabetic ketoacidosis. Workup revealed acute pancreatitis with lipase over 2900. His pancreatitis and DKA have resolved with volume repletion. Has been transitioned to subcutaneous long-acting insulin or past 24 hr. Continues to require insulin sliding scale due to uncontrolled hyperglycemia. Other ongoing issues in acute renal failure and electrolyte abnormalities. PLAN: Start pre meal lispro 2 units with insulin sliding scale. Increase Lantus to 30 units HS Increase NS to 125 cc/hr Monitor renal function Replace phosphorus Patient can probably be downgraded to general dominguez
[2019-12-30] MEDS: INSULIN LISPRO 100 UNIT/1 ML SQ SCH ×3 (11:30→16:16)
[2019-12-30] MEDS ORDERED: INSULIN GLARGINE 100 UNITS/ML SQ SCH (21:00)
[2019-12-30] MEDS ORDERED: NACHLORIDE 0.45% 1,000 ML IV SCH (22:00)
--- NOTE | 2019-12-30 22:02 | P.PN ---
Date of Service: 12/30/19 Vital Signs Temp Pulse Resp BP Pulse Ox 98.8 F 74 18 133/79 93 12/30/19 20:00 12/30/19 20:00 12/30/19 20:00 12/30/19 20:00 12/30/19 20:00 Medications Dextrose (Dextrose 50% Syringe/Vial) 12.5 gm IV PRN PRN; Protocol PRN Reason: HYPOGLYCEMIA Stop: 01/28/20 13:15 Enoxaparin Sodium (Lovenox 30 Mg Inj) 30 mg SQ DAILY [facility] Stop: 01/27/20 09:01 Last Admin: 12/30/19 08:17 Dose: 30 mg Documented by: Glucagon (Glucagen) 1 mg IM 1X PRN; Protocol PRN Reason: HYPOGLYCEMIA Stop: 01/28/20 13:15 Hydromorphone HCl (Dilaudid) 2 mg IV Q6H PRN PRN Reason: Pain scale 8-10 (Severe) Stop: 01/27/20 09:47 Last Admin: 12/28/19 13:40 Dose: 2 mg Documented by: Sodium Chloride (Sodium Chloride 0.45%) 1,000 mls @ 100 mls/hr IV .Q10H [facility] Stop: 01/29/20 22:01 Insulin Glargine (Lantus) 30 units SQ BEDTIME [facility] Stop: 01/29/20 21:01 Last Admin: 12/30/19 21:39 Dose: 30 units Documented by: Insulin Human Lispro (Humalog) 2 unit SQ AC [facility] Stop: 01/29/20 10:22 Last Admin: 12/30/19 16:16 Dose: 2 unit Documented by: Insulin Human Regular (Novolin -R) 0 unit SQ ACHS [facility]; Protocol Stop: 01/28/20 16:31 Last Admin: 12/30/19 21:39 Dose: 100 unit Documented by: Lorazepam (Ativan) 2 mg IV Q4H PRN PRN Reason: AGITATION Stop: 01/27/20 09:46 Last Admin: 12/28/19 18:10 Dose: 2 mg Documented by: Metoprolol Tartrate (Lopressor) 25 mg PO BID 6AM 6PM [facility] Stop: 01/28/20 06:01 Last Admin: 12/30/19 17:15 Dose: 25 mg Documented by: Ondansetron HCl (Zofran) 4 mg IV Q4H PRN PRN Reason: NAUSEA / VOMITING Stop: 01/27/20 00:03 Last Admin: 12/28/19 18:10 Dose: 4 mg Documented by: Microbiology Results 12/27/19 21:15 Clean Catch Urine [place] Count - Final 12/27/19 21:15 Clean Catch Urine - Final No growth. 12/27/19 21:20 Blood - Blood Aerobic Blood Culture - Preliminary No growth in 24 hours. 12/27/19 21:20 Blood - Blood Anaerobic Blood Culture - Preliminary No growth in 24 hours. 12/27/19 21:00 Blood - Blood Aerobic Blood Culture - Preliminary No growth in 24 hours. 12/27/19 21:00 Blood - Blood Anaerobic Blood Culture - Preliminary No growth in 24 hours. Assessment/ Plan: Nephrology Feeling better today. CPS stable without CP or SOB. No acute events overnight. Vitals, medications, blood work and imaging reviewed in the chart. General: In no apparent distress, Cooperative HEENT: Atraumatic Neck: Supple Respiratory: Clear to auscultation bilaterally Cardiovascular: No edema, Regular rate/rhythm Gastrointestinal: Soft and benign, Non-distended Musculoskeletal: No clubbing, No contractures Integumentary: No rashes, No cyanosis Neurological: Normal speech Blood work reviewed in the chart. Na 149; K 3.3 Imagings Data: EXAM DESCRIPTION: Esha Single View12/29/2019 6:27 am CLINICAL HISTORY: Congestion COMPARISON: December 27 FINDINGS: Left base is hazy probably secondary to overlying soft tissue. Less likely an infiltrate. Otherwise the lungs appear clear of acute infiltrate. The heart remains enlarged Conclusions/Impression: A/ OSIEL in the setting of hypovolemia improving with IVF. Hypernatremia/ Dehydration Hypokalemia Hypocalcemia HypoPO4 DM I with DKA P/ Continue current POC and Medications. Change IVF 1/2NS. Will start oral bicarb as needed. Encourage free water intake. Replete PO4. Titrate insulin as needed. No NSAIDs. AM labs. Daily weight.
[2019-12-31 05:04] LABS: Absolute Lymphocytes (CBC) 0.8 K/uL (0.7-4.9); Basophils % 0.2 % (0-1.3); Hematocrit 39.9 % (39.6-49.0); Lymphocytes % 10.1 % (15.3-44.8); MPV 9.2 fL (7.6-11.3); RBC Red Blood Cell Count 4.57 M/uL (4.33-5.43)
[2019-12-31] MEDS: METOPROLOL TAR 25 MG TAB PO SCH (05:15)
[2019-12-31 05:16] LABS: Magnesium 2.4 mg/dL (1.8-2.4); Phosphorus 2.2 mg/dL (2.5-4.9); Potassium 3.4 mmol/L (3.5-5.1)
[2019-12-31 08:37] VITALS: O2SAT 96
[2019-12-31] MEDS: ENOXAPARIN 30 MG/0.3 ML SQ SCH (08:42)
[2019-12-31] MEDS: INSULIN -REGULAR HUMAN 50 UNIT/0.5 ML ML SQ SCH ×2 (08:42→11:30)
[2019-12-31] MEDS: INSULIN LISPRO 100 UNIT/1 ML SQ SCH ×2 (08:43→11:49)
[2019-12-31] MEDS ORDERED: POTASSIUM 25 MEQ EFFERV TAB PO ONE (09:00)
[2019-12-31] MEDS ORDERED: POTASSIUM PHOS IN 0.9 % NACL 15 MMOL/250 ML BAG IV ONE (09:00)
[2019-12-31] MEDS ORDERED: SODIUM CHLORIDE 0.9% 10ML INJ IV PRN (10:26)
[2019-12-31] MEDS ORDERED: PANTOPRAZOLE 40 MG INJ IVP ONE (10:26)
--- NOTE | 2019-12-31 10:29 | P.DS ---
Admission Date: 12/28/19 Discharge Date: 12/31/19 Reason for Admission: DKA - Problems (1) DKA (diabetic ketoacidoses) Current Visit: Yes Status: Acute Qualifiers: Diabetes mellitus type: type 1 Diabetes mellitus complication detail: without coma Qualified Code(s): E10.10 - Type 1 diabetes mellitus with ketoacidosis without coma (2) Acute pancreatitis Current Visit: Yes Status: Acute (3) OSIEL (acute kidney injury) Current Visit: Yes Status: Acute (4) Sleep apnea Current Visit: Yes Status: Acute Brief History of Present Illness: [age] year old male with a past medical history of hypertension and obesity who was admitted to the hospital with DKA in the setting of acute pancreatitis. Patient was admitted in ICU. He underwent a volume repletion and DKA as per protocol. This is a responded well to insulin infusion and was successfully transitioned to subcutaneous long-acting insulin. His A1c is 10.9. He will be discharged on Lantus 30 units at bedtime. Patient is insulin naive. There is no dough sheeter on site. Patient's nurse will help educate the patient. Supplies to be offered by staff. Vital Signs/Physical Exam: Temp Pulse Resp BP Pulse Ox 97.7 F 85 18 146/89 H 96 12/31/19 08:00 12/31/19 08:00 12/31/19 08:00 12/31/19 08:00 12/31/19 08:00 General: Alert, Cooperative HEENT: Atraumatic, Normocephalic Neck: Supple Respiratory: Clear to auscultation bilaterally, Normal air movement Cardiovascular: No edema, Normal pulses, Regular rate/rhythm, Normal S1 S2 Gastrointestinal: Normal bowel sounds, Hypoactive, Soft and benign, Non- distended Musculoskeletal: No clubbing, No swelling, No contractures, No erythema, No tenderness, No warmth Neurological: Normal speech, Normal strength at 5/5 x4 extr, Sensation intact Urinary: Moise catheter (Moise catheter to be removed) Laboratory Data at Discharge: WBC 8.3 K/uL (4.3-10.9) 12/31/19 04:50 Hgb 13.3 g/dL (13.6-17.9) L 12/31/19 04:50 Hct 39.9 % (39.6-49.0) 12/31/19 04:50 Plt Count 128 K/uL (152-406) L 12/31/19 04:50 PT 12.0 SECONDS (9.5-12.5) 12/27/19 21:00 INR 1.02 12/27/19 21:00 Sodium 146 mmol/L (136-145) H 12/31/19 04:50 Potassium 3.4 mmol/L (3.5-5.1) L 12/31/19 04:50 BUN 23 mg/dL (7-18) H 12/31/19 04:50 Creatinine 1.18 mg/dL (0.55-1.3) 12/31/19 04:50 Glucose 177 mg/dL (74-106) H 12/31/19 04:50 Phosphorus 2.2 mg/dL (2.5-4.9) L 12/31/19 04:50 Magnesium 2.4 mg/dL (1.8-2.4) D 12/31/19 04:50 Total Bilirubin 0.6 mg/dL (0.2-1.0) 12/27/19 21:00 AST 14 U/L (15-37) L 12/27/19 21:00 ALT 33 U/L (12-78) 12/27/19 21:00 Alkaline Phosphatase 138 U/L (45-117) H 12/27/19 21:00 Troponin I < 0.02 ng/mL (0.0-0.045) 12/28/19 04:55 Triglycerides 235 mg/dL (<150) H 12/29/19 04:45 Cholesterol 156 mg/dL (<200) 12/29/19 04:45 HDL Cholesterol 30 mg/dL (40-60) L 12/29/19 04:45 Cholesterol/HDL Ratio 5.20 12/29/19 04:45 Lipase 314 U/L (73-393) 12/29/19 04:45 Home Medications: Calcitrol [Rocaltrol*] 0.5 mcg PO DAILY cap 12/31/19 Cholecalciferol (Vitamin D3) [Vitamin D 5,000 IU Cap*] 5,000 unit PO DAILY cap 12/31/19 Insulin Glargine Human [Lantus*] 30 units SQ BEDTIME 30 Days #10 ml 12/31/19 Insulin Lispro [Humalog*] 2 unit SQ AC #7 ml 12/31/19 Metoprolol Tartrate [Lopressor*] 25 mg PO BID 6AM 6PM tab 12/31/19 New Medications: Insulin Lispro [Humalog*] 2 unit SQ AC #7 ml Insulin Glargine Human [Lantus*] 30 units SQ BEDTIME 30 Days #10 ml
[2019-12-31 14:00] VITALS: BP 119/85; TEMP 98.3
--- NOTE | 2019-12-31 20:33 | P.PN ---
Date of Service: 12/31/19 Vital Signs Temp Pulse Resp BP Pulse Ox 98.3 F 84 18 119/85 98 12/31/19 12:00 12/31/19 12:00 12/31/19 12:00 12/31/19 12:00 12/31/19 12:00 Microbiology Results 12/27/19 21:15 Clean Catch Urine [place] Count - Final 12/27/19 21:15 Clean Catch Urine - Final No growth. 12/27/19 21:20 Blood - Blood Aerobic Blood Culture - Preliminary No growth in 24 hours. 12/27/19 21:20 Blood - Blood Anaerobic Blood Culture - Preliminary No growth in 24 hours. 12/27/19 21:00 Blood - Blood Aerobic Blood Culture - Preliminary No growth in 24 hours. 12/27/19 21:00 Blood - Blood Anaerobic Blood Culture - Preliminary No growth in 24 hours. Assessment/ Plan: Nephrology Feeling better today but still having difficulty with food. +Acid reflux and nausea. +Loose stool. CPS stable without CP or SOB. No acute events overnight. Vitals, medications, blood work and imaging reviewed in the chart. General: In no apparent distress, Cooperative HEENT: Atraumatic Neck: Supple Respiratory: Clear to auscultation bilaterally Cardiovascular: No edema, Regular rate/rhythm Gastrointestinal: Soft and benign, Non-distended Musculoskeletal: No clubbing, No contractures Integumentary: No rashes, No cyanosis Neurological: Normal speech Blood work reviewed in the chart. Na 149; K 3.3 Imagings Data: EXAM DESCRIPTION: Esha Single View12/29/2019 6:27 am CLINICAL HISTORY: Congestion COMPARISON: December 27 FINDINGS: Left base is hazy probably secondary to overlying soft tissue. Less likely an infiltrate. Otherwise the lungs appear clear of acute infiltrate. The heart remains enlarged Conclusions/Impression: A/ OSIEL in the setting of hypovolemia improving with IVF. Hypernatremia/ Dehydration Hypokalemia Hypocalcemia HypoPO4 DM I with DKA P/ Continue current POC and Medications. Start Vitamin D. Replete potassium and PO4. Encourage free water intake. Titrate insulin as needed. No NSAIDs. AM labs. Daily weight.
[2020-01-01] MEDS ORDERED: VITAMIN D 5,000 UNIT CAP PO SCH (09:00)
[2020-01-01] MEDS ORDERED: CALCITROL 0.25 MCG CAP PO SCH (09:00)
--- NOTE | 2020-01-02 12:30 | P.PN ---
Subjective Date of Service: 12/29/19 (Hospitalist) Chief Complaint: DKA Subjective: Improving (Patient is clinically improving although is blood sugar is still very high he does not take any insulin at home abdominal pain is also improving) Review of Systems Unremarkable General: Weakness Physical Examination - Vital Signs Temperature: 98.3 F Blood Pressure: 119/85 Pulse: 84 Respirations: 18 Pulse Ox (%): 98 - Physical Exam General: Alert, Oriented x3 Neck: Supple Respiratory: Clear to auscultation bilaterally Cardiovascular: No edema, Regular rate/rhythm Gastrointestinal: Normal bowel sounds, Soft and benign - Studies Microbiology Data (last 24 hrs): 12/27/19 21:20 Blood - Blood Aerobic Blood Culture - Final No growth in 5 days. 12/27/19 21:20 Blood - Blood Anaerobic Blood Culture - Final No growth in 5 days. 12/27/19 21:00 Blood - Blood Aerobic Blood Culture - Final No growth in 5 days. 12/27/19 21:00 Blood - Blood Anaerobic Blood Culture - Final No growth in 5 days. Assessment & Plan - Problems (Diagnosis) (1) DKA (diabetic ketoacidoses) Status: Acute Plan: Patient admitted with DKA is now improving the insulin drip now on Lantus patient has renal failure bicarb is now improved vital signs all stable cultures negative patient has mildly elevated triglyceride nephrology has been console did Ritchie got chronic renal failure from his diabetes does not take any medications at home Qualifiers: Diabetes mellitus type: type 1 Diabetes mellitus complication detail: without coma Qualified Code(s): E10.10 - Type 1 diabetes mellitus with ketoacidosis without coma (2) Acute pancreatitis Status: Acute Plan: Patient is better lipase is back to normal (3) Sleep apnea Status: Acute Plan: Patient has a history of sleep apnea is becoming more confused and agitated of ordered BiPAP Physician Review Additional Text: Assessment Patient is a 54-year-old male with obesity, type 2 diabetes mellitus, obstructive sleep apnea who presented to the ER was found to be in diabetic ketoacidosis. Workup revealed acute pancreatitis with lipase over 2900. His pancreatitis and DKA have resolved with volume repletion. Has been transitioned to subcutaneous long-acting insulin or past 24 hr. Continues to require insulin sliding scale due to uncontrolled hyperglycemia. Other ongoing issues in acute renal failure and electrolyte abnormalities. PLAN: Start pre meal lispro 2 units with insulin sliding scale. Increase Lantus to 30 units HS Increase NS to 125 cc/hr Monitor renal function Replace phosphorus Patient can probably be downgraded to general dominguez
== END 2019-12-31 12:59 | disposition home or self-care (01) | DRG 637 ==
LOC: ER 19:48 → ERHOLD 12-28 00:10 → 3RD-ICU 12-28 07:24 → 2ND 12-30 15:45
PROVIDERS: ADMIT Hospitalist; ATTEND Internal Medicine
PROC: 05HY33Z Insertion of Infusion Device into Upper Vein, Percutaneous Approach (ICD-10-PCS; principal; 2019-12-28)
DX: E10.10 Type 1 diabetes mellitus with ketoacidosis without coma (principal); K85.90 Acute pancreatitis without necrosis or infection, unspecified; N17.9 Acute kidney failure, unspecified; E87.0 Hyperosmolality and hypernatremia; G47.30 Sleep apnea, unspecified; I10 Essential (primary) hypertension; Z79.4 Long term (current) use of insulin; Z79.899 Other long term (current) drug therapy; F17.200 Nicotine dependence, unspecified, uncomplicated; R79.89 Other specified abnormal findings of blood chemistry; E86.1 Hypovolemia; E86.0 Dehydration; E87.6 Hypokalemia; E83.51 Hypocalcemia; E83.39 Other disorders of phosphorus metabolism
CPT/HCPCS: 36415; 51702; 70450; 71045; 71250; 72125; 76770; 80048; 80061; 80076; 80320; 81003; 82010; 82805; 82947; 83036; 83605; 83690; 83735; 83880; 84100; 84439; 84443; 84478; 84484; 85025; 85610; 87040; 87086; 87088; 93005; 93306; 94660; 96365; 96366; 96367; 96368; 96375; 99285; C9113; J0696; J1170; J1650; J1815; J2270; J2405; J2543; J2550; J7030; J7799

== ENCOUNTER 2020-02-14 20:15 | Inpatient (IN) | payer SELFPAY ==
--- OUTSIDE RECORDS SUMMARY | 2020-02-14 20:16 | XMS REPORT | Clinical Summary ---
:1965 Author Organization [facility] Address [address] [place] [id number] Care Team Providers Name Role Phone Ang Primary Care Provider Allergies No Known Allergies Medications No known medications Active Problems Not on file Immunizations Name Dates Previously Given Next Due Td 01/06/2018 Social History Tobacco Use Types Packs/Day Years Used Date Never Smoker Smokeless Tobacco: Never Used Tobacco Cessation: Counseling Given: No Alcohol Use Drinks/Week oz/Week Comments No Sex Assigned at Date Recorded Not on file Job Start Date Occupation Industry Not on file Not on file Not on file Travel History Travel Start Travel End No recent travel history available. Last Filed Vital Signs Not on file Plan of Treatment Not on file Results Not on fileafter 02/13/2019
[2020-02-14 21:29] LABS: Absolute Lymphocytes (CBC) 1.3 K/uL (0.7-4.9); Basophils % 0.8 % (0-1.3); Hematocrit 43.8 % (39.6-49.0); Lymphocytes % 9.3 % (15.3-44.8); MPV 8.4 fL (7.6-11.3); RBC Red Blood Cell Count 4.92 M/uL (4.33-5.43)
[2020-02-14 21:45] LABS: Albumin 4.1 g/dL (3.4-5.0); Bilirubin Direct 0.1 mg/dL (0-0.2); Bilirubin Total 0.5 mg/dL (0.2-1.0); Potassium 3.8 mmol/L (3.5-5.1); Protein, Total 8.4 g/dL (6.4-8.2)
[2020-02-15] MEDS ORDERED: ACETAMINOPHEN 500 MG TAB PO PRN (01:47)
[2020-02-15] MEDS ORDERED: RIVAROXABAN 20 MG TABLET PO ONE (02:05)
[2020-02-15 02:43] VITALS: BMI 32.8
[2020-02-15 02:47] VITALS: O2SAT 98
[2020-02-15] MEDS: D5 0.45 NS 1,000 ML IV SCH ×2 (02:57→10:27)
[2020-02-15] MEDS ORDERED: RIVAROXABAN 15 MG TABLET PO SCH (09:00)
[2020-02-15 09:41] VITALS: BP 139/85; TEMP 97.8
--- NOTE | 2020-02-15 10:37 | P.SSS ---
Patient History Date of Service: 02/15/20 Reason for admission: ABDOMEN PAIN History of Present Illness: MR. COOPER IS A NEW DIABETIC WHO HAD SEVERE HYPERGLYCEMIA A FEW WEEKS AGO. HE WAS IN [facility], HAD IV PLACED IN L FEMORAL VEIN. HE COMES WITH LOWER ABDOMEN BLOATINNG AND NAUSEA THAT HAS TOTALLY RESOLVED NOW. HE HAD CT SCAN DONE THAT SHOWED INTERNAL AND EXTERNAL ILIAC DVT THAT IS POSSIBLE FROM THE IV HE HAD ON L SIDE THIGH WHEN HE WAS SEVERELY DEHYDRATED. HE IS VERY STABLE TO GO HOME. Allergies No Known Allergies Allergy (Unverified 12/28/19 02:26) Home Medications: Insulin Glargine Human [Lantus*] 30 units SQ BEDTIME 30 Days #10 ml 12/31/19 Insulin Lispro [Humalog*] 2 unit SQ AC #7 ml 12/31/19 Metoprolol Tartrate [Lopressor*] 25 mg PO DAILY 30 Days #30 tab 12/31/19 Cholecalciferol (Vitamin D3) [Vitamin D3] 10,000 unit PO DAILY 02/15/20 Rivaroxaban [Xarelto*] 15 mg PO BID #14 tablet 02/15/20 Ubidecarenone [Co Q-10] 100 mg PO DAILY 02/15/20 Ubiquinol 100 mg PO DAILY 02/15/20 - Past Medical/Surgical History Has patient received pneumonia vaccine in the past: No Diabetic: Yes -: IDDM -: HTN - Social History Smoking Status: Never smoker Alcohol use: No CD- Drugs: No Caffeine use: No Place of Residence: Home Review of Systems 10-point ROS is otherwise unremarkable Physical Examination - Vital Signs Temperature: 97.8 F Blood Pressure: 139/85 Pulse: 79 Respirations: 20 Pulse Ox (%): 97 - Physical Exam General: Alert, In no apparent distress HEENT: Atraumatic, PERRLA, Mucous membr. moist/pink, EOMI, Sclerae nonicteric Neck: Supple, 2+ carotid pulse no bruit, No LAD, Without JVD or thyroid abnormality Respiratory: Clear to auscultation bilaterally, Normal air movement Cardiovascular: Regular rate/rhythm, Normal S1 S2 Gastrointestinal: Normal bowel sounds, No tenderness Musculoskeletal: No tenderness Integumentary: No rashes Neurological: Normal gait, Normal speech, Normal strength at 5/5 x4 extr, Normal tone, Normal affect Lymphatics: No axilla or inguinal lymphadenopathy - Studies Laboratory Data (last 24 hrs) 02/14/20 21:12: WBC 14.2 H, Hgb 14.6, Hct 43.8, Plt Count 281 02/14/20 21:12: Sodium 139, Potassium 3.8, BUN 24 H, Creatinine 1.06, Glucose 144 H, Total Bilirubin 0.5, AST 27, ALT 50, Alkaline Phosphatase 114, Lipase 86 - Diagnosis (Problem(s)) (1) Food poisoning Current Visit: Yes Status: Acute Plan: MOST LIKELY WHY HE HAD ABDOMEN CRAMPS. 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 HE AGAIN HAS NO SYMPTOMS. HE WILL TAKE XARELTO FOR 3 MOTNHS. I WILL HELP WITH SAMPLES SOME COST WILL BE HIGH. 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 WITH GOOD DIET, TRUONG HE WILL BE ABLE TO GET OFF INSULIN IF HE LOSES WEIGHT. Qualifiers: Diabetes mellitus type: type 2 - Disposition Disposition: ROUTINE DISCHARGE Condition: FAIR
[2020-02-15] MEDS ORDERED: INSULIN LISPRO 2 UNIT SQ SCH (11:30)
--- NOTE | 2020-02-15 12:13 | RAD REPORT ---
EXAM DESCRIPTION: [facility]2020 11:46 am CLINICAL HISTORY: left leg pain and swelling. COMPARISON: None. FINDINGS: Left common femoral, superficial femoral, popliteal and posterior tibial veins are compre ssible and demonstrate augmentation. Doppler demonstrates good flow. IMPRESSION: No evidence of deep venous thrombosis involving the left lower extremity.
--- NOTE | 2020-02-15 12:28 | RAD REPORT ---
EXAM DESCRIPTION: CT - Chest For Pe Angio - 02/15/2020 3:02 am CLINICAL HISTORY: PE COMPARISON: None. TECHNIQUE: CT CHEST ANGIOGRAPHY WITH IV CONTRAST on 02/14/2020 11:37 PM CDT. MIPS reconstructions wer e generated. This exam was performed according to our departmental dose-optimization program, which includes autom ated exposure control, adjustment of the mA and/or kV according to patient size and/or use of iterati ve reconstruction technique. MIP images were generated. FINDINGS: Thoracic aorta is normal in course and caliber without aneurysm or dissection. Pulmonary a rteries are adequately opacified without acute or chronic filling defects. The heart is mildly enlarged. There is no pericardial effusion. Intrathoracic lymph nodes are not enl arged. There is no pleural effusion, pleural thickening or pneumothorax. Central airways are patent. There i s a tiny anterior right upper lobe calcified granuloma. There are no acute abnormalities within the limited images of the upper abdomen. There are no acute osseous findings. No suspicious bony lesions. IMPRESSION: No aortic dissection or aneurysm. No pulmonary embolus. No pneumonia. Electronically signed by: Saurav Miranda MD 02/15/2020 12:49 AM CDT Due to temporary technical issues with the PACS/Fluency reporting system, reports are being signed by the in house radiologist without review as a courtesy to ensure prompt reporting. The interpreting r adiologist is fully responsible for the content of the report.
--- NOTE | 2020-02-15 12:29 | RAD REPORT ---
EXAM DESCRIPTION: CT - Abdomen Pelvis W Contrast - 02/15/2020 3:05 am ADDENDUM #1 ADDENDUM: THIS REPORT CONTAINS FINDINGS THAT MAY BE CRITICAL TO PATIENT'S CARE: The findings were verbally discussed via telephone conference with Shaq Julian by Dr. Penny on 02/14/2020 11:30 PM CDT. The results were acknowledged and understood. Electronically signed by: Oren Penny DO 02/14/2020 11:42 PM CDT End of Addendum EXAM DESCRIPTION: CT Abdomen and Pelvis With Intravenous Contrast CLINICAL HISTORY: The patient is 54 years old and is Male; ABD PAIN TECHNIQUE: Axial computed tomography images of the abdomen and pelvis with intravenous contrast. S agittal and coronal reformatted images were created and reviewed. This CT exam was performed using one or more of the following dose reduction techniques: automated exposure control, adjustment of t he mA and/or kV according to patient size, and/or use of iterative reconstruction technique. DLP: 2199 mGy*cm COMPARISON: None. FINDINGS: LUNG BASES: Lung bases are clear. HEART: Visualized heart is normal. ABDOMEN: LIVER: Unremarkable. No mass. GALLBLADDER AND BILE DUCTS: Unremarkable. No calcified stones. No ductal dilation. PANCREAS: Unremarkable. No mass. No ductal dilation. SPLEEN: Unremarkable. No splenomegaly. ADRENALS: Unremarkable. No mass. KIDNEYS AND URETERS: Multiple bilateral renal cysts measuring up to 4.7 cm on the right. No hydronephrosis. STOMACH AND BOWEL: Unremarkable. No obstruction. No mucosal thickening. PELVIS: APPENDIX: The appendix is seen and is within normal limits. BLADDER: Bladder is decompressed. REPRODUCTIVE: Unremarkable as visualized. ABDOMEN and PELVIS: INTRAPERITONEAL SPACE: Unremarkable. No free air. No significant fluid collection. BONES/JOINTS: Trace retrolisthesis of L4 on L5. No acute fracture. No dislocation. SOFT TISSUES: Small fat-containing umbilical hernia. Bilateral fat-containing inguinal hernias. VASCULATURE: Multiple subtle nonspecific soft tissue defect filling defects in the left iliac vein . No abdominal aortic aneurysm. LYMPH NODES: Unremarkable. No enlarged lymph nodes. IMPRESSION: 1. No acute intra-abdominal abnormality. 2. Multiple subtle filling defects in the left external and internal iliac veins. Findings may re present deep vein thrombosis. Dedicated CTA chest and left lower extremity venous Doppler are recomme nded. 3. Multiple bilateral renal cysts measuring up to 4.7 cm on the right. Electronically signed by: Oren Penny DO 02/14/2020 11:22 PM CDT Due to temporary technical issues with the PACS/Fluency reporting system, reports are being signed by the in house radiologist without review as a courtesy to ensure prompt reporting. The interpreting r adiologist is fully responsible for the content of the report.
[2020-02-15] MEDS ORDERED: INSULIN GLARGINE SQ SCH (21:00)
[2020-02-16] MEDS ORDERED: UBIQUINOL 100 MG PO SCH (09:00)
[2020-02-16] MEDS ORDERED: HOME MED 1 EA UNK (Metoprolol Tartrate [Lopressor*] 25 MG) PO SCH (09:00)
[2020-02-16] MEDS ORDERED: HOME MED 1 EA UNK (Cholecalciferol (Vitamin D3) [Vitamin D3] 10,000 UNIT) PO SCH (09:00)
--- NOTE | 2020-02-16 18:28 | EDPHYS ---
Physician Documentation [facility] Name: Chicho De Los Santos Age: 54 yrs Sex: Male : 1965 Arrival Date: 02/14/2020 Time: 20:28 Bed 14 Private MD: ED Physician Shaq Julian HPI: 02/13 21:34 This 54 yrs old Male presents to ER via Ambulatory with complaints of mh7 Abdominal Pain. 21:34 The patient presents with abdominal pain in the lower abdomen. Onset: The mh7 symptoms/episode began/occurred this morning. The symptoms do not radiate. Associated signs and symptoms: Pertinent positives: anorexia, blood in stools, chest pain, diarrhea, dysuria, fever, headache, hematuria, palpitations, shortness of breath, testicular pain, vomiting blood, Pertinent negatives: nausea and vomiting. The symptoms are described as intermittent, vague, waxing/waning. Modifying factors: The symptoms are alleviated by nothing, the symptoms are aggravated by nothing. Severity of pain: At its worst the pain was moderate today, in the emergency department the pain has improved moderately. Historical: - Allergies: 20:40 No Known Allergies; rv - PMHx: 20:40 Diabetes - IDDM; Hypertension; rv - Immunization history:: Adult Immunizations up to date. - Social history:: Smoking status: Patient denies any tobacco usage or history of. ROS: 21:34 Constitutional: Negative for fever, chills, and weight loss, Eyes: Negative for injury, mh7 pain, redness, and discharge, ENT: Negative for injury, pain, and discharge, Neck: Negative for injury, pain, and swelling, Cardiovascular: Negative for chest pain, palpitations, and edema, Respiratory: Negative for shortness of breath, cough, wheezing, and pleuritic chest pain, Back: Negative for injury and pain, : Negative for injury, bleeding, discharge, and swelling, MS/Extremity: Negative for injury and deformity, Skin: Negative for injury, rash, and discoloration, Neuro: Negative for headache, weakness, numbness, tingling, and seizure, Psych: Negative for depression, anxiety, suicide ideation, homicidal ideation, and hallucinations, Allergy/Immunology: Negative for hives, rash, and allergies, Endocrine: Negative for neck swelling, polydipsia, polyuria, polyphagia, and marked weight changes, Hematologic/Lymphatic: Negative for swollen nodes, abnormal bleeding, and unusual bruising. Exam: 21:34 Constitutional: This is a well developed, well nourished patient who is awake, alert, mh7 and in no acute distress. Head/Face: Normocephalic, atraumatic. Eyes: Pupils equal round and reactive to light, extra-ocular motions intact. Lids and lashes normal. Conjunctiva and sclera are non-icteric and not injected. Cornea within normal limits. Periorbital areas with no swelling, redness, or edema. Neck: Trachea midline, no thyromegaly or masses palpated, and no cervical lymphadenopathy. Supple, full range of motion without nuchal rigidity, or vertebral point tenderness. No Meningismus. Chest/axilla: Normal chest wall appearance and motion. Nontender with no deformity. No lesions are appreciated. Cardiovascular: Regular rate and rhythm with a normal S1 and S2. No gallops, murmurs, or rubs. Normal PMI, no JVD. No pulse deficits. Respiratory: Lungs have equal breath sounds bilaterally, clear to auscultation and percussion. No rales, rhonchi or wheezes noted. No increased work of breathing, no retractions or nasal flaring. 21:34 Back: No spinal tenderness. No costovertebral tenderness. Full range of motion. Skin: Warm, dry with normal turgor. Normal color with no rashes, no lesions, and no evidence of cellulitis. MS/ Extremity: Pulses equal, no cyanosis. Neurovascular intact. Full, normal range of motion. Neuro: Awake and alert, GCS 15, oriented to person, place, time, and situation. Cranial nerves II-XII grossly intact. Motor strength 5/5 in all extremities. Sensory grossly intact. Cerebellar exam normal. Normal gait. Psych: Awake, alert, with orientation to person, place and time. Behavior, mood, and affect are within normal limits. 21:34 Abdomen/GI: Inspection: abdomen appears normal, Bowel sounds: normal, in all quadrants, Palpation: moderate abdominal tenderness, in the left lower quadrant, Rectal exam: the exam is deferred, because of patient request, Indicators: McBurney's point is not tender, Skelton's sign is negative, Rovsing's sign is negative, Obturator sign is negative, Psoas sign is negative, Liver: no appreciated palpable abnormalities, Hernia: not appreciated. Vital Signs: 20:38 BP 172 / 106; Pulse 75; Resp 16; Temp 97.8; Pulse Ox 100% ; Weight 104.78 kg; Height 5 rv ft. 10 in. (177.80 cm); Pain 3/10; 21:45 BP 150 / 90; Pulse 79; Resp 18; Pulse Ox 98% on R/A; ea 22:00 BP 152 / 93; Pulse 80; Resp 18; Pulse Ox 98% on R/A; ea 23:10 BP 152 / 93; Pulse 74; Resp 18; Pulse Ox 98% ; ea 02/14 00:50 BP 150 / 98; Pulse 75; Resp 18; Pulse Ox 100% on R/A; ea 01:50 BP 168 / 90; Pulse 80; Resp 18; Pulse Ox 98% on R/A; ea 02/13 20:38 Body Mass Index 33.14 (104.78 kg, 177.80 cm) rv MDM: 02/13 21:32 Patient medically screened. [facility] 02/14 01:41 Differential diagnosis: AAA, diverticulitis, non-specific abd pain, Ureterolithiasis, 7 urinary tract infection. Data reviewed: vital signs, nurses notes, lab test result(s), CBC, electrolytes, urinalysis. Data interpreted: gaming manager: rate is 74 beats/min, rhythm is normal sinus rhythm, regular, Interpretation: normal rate, normal rhythm, Pulse oximetry: on room air is 98 %. Interpretation: normal. Counseling: I had a detailed discussion with the patient and/or guardian regarding: the historical points, exam findings, and any diagnostic results supporting the discharge/admit diagnosis, the presence of at least one elevated blood pressure reading (>120/80) during this emergency department visit, lab results, radiology results, the need for further work-up and treatment in the hospital. 02/13 20:41 Order name: Basic Metabolic Panel; Complete Time: 22: 02/13 20:41 Order name: CBC with Diff; Complete Time: 21: 02/13 20:41 Order name: Hepatic Function; Complete Time: 22: 02/13 20:41 Order name: Lipase; Complete Time: 22: 02/13 21:33 Order name: CT Abd/Pelvis - IV Contrast Only [facility] 02/13 23:37 Order name: CT Chest For PE Angio [facility] 02/13 20:41 Order name: IV Saline Lock; Complete Time: 21:14 02/13 20:41 Order name: Labs collected and sent; Complete Time: 20:53 02/13 21:33 Order name: Urine Dipstick-Ancillary (obtain specimen); Complete Time: 22:07 [facility] 02/13 23:37 Order name: US Extremity Venous Unilateral Ltd [facility] Administered Medications: 02:01 Drug: Xarelto 15 mg Route: PO; rv 02:22 Follow up: Response: No adverse reaction ea Disposition: 02/15/20 01:43 Hospitalization ordered by Saturnino Banerjee for Inpatient Admission. Preliminary diagnosis is Illiac Vein Thrombosis. - Bed requested for Telemetry/MedSurg (Inpatient). - Status is Inpatient Admission. ea - Condition is Stable. - Problem is new. - Symptoms are unchanged. Signatures: Dispatcher [employer] EDChina Willis RN RN cg Antunez, Elena, RN RN ea Vicente, Ronaldo RN RN Shaq Sarah MD MD [facility] Corrections: (The following items were deleted from the chart) 02:01 01:43 Hospitalization Ordered by Saturnino Banerjee MD for Inpatient Admission. Preliminary diagnosis is Illiac Vein Thrombosis. Bed requested for Telemetry/MedSurg (Inpatient). Status is Inpatient Admission. Condition is Stable. Problem is new. Symptoms are unchanged. [facility] 02:34 02:01 02/15/2020 01:43 Hospitalization Ordered by Saturnino Banerjee MD for Inpatient ea Admission. Preliminary diagnosis is Illiac Vein Thrombosis. Bed requested for Telemetry/MedSurg (Inpatient). Status is Inpatient Admission. Condition is Stable. Problem is new. Symptoms are unchanged.
--- NOTE | 2020-02-16 18:28 | ER ---
Nurse's Notes [facility] Name: Chicho De Los Santos Age: 54 yrs Sex: Male : 1965 Arrival Date: 02/14/2020 Time: 20:28 Bed 14 Private MD: Diagnosis: Illiac Vein Thrombosis Presentation: 02/13 20:38 Chief complaint: Patient states: I WOKE UP WITH PAIN ON MY LEFT SIDE THAT GOES ACROSS rv TO THE RIGHT SIDE. IT FEELS LIKE IM CONSTIPATED AND I FEEL THE URGE BUT COULD NOT GO. I VOMITED THREE TIMES TODAY. Coronavirus screen: Proceed with normal triage. Ebola Screen: No symptoms or risks identified at this time. Initial Sepsis Screen: Does the patient meet any 2 criteria? No. Patient's initial sepsis screen is negative. Does the patient have a suspected source of infection? No. Patient's initial sepsis screen is negative. Risk Assessment: Do you want to hurt yourself or someone else? Patient reports no desire to harm self or others. Onset of symptoms was February 14, 2020 at 08:00. 20:38 Method Of Arrival: Ambulatory rv 20:38 Acuity: KIT 3 rv Triage Assessment: 20:40 General: Appears comfortable, Behavior is calm, cooperative. Pain: Complains of pain in rv abdomen Pain currently is 3 out of 10 on a pain scale. Quality of pain is described as dull, Pain began THIS AM. Neuro: Level of Consciousness is awake, alert, obeys commands, Oriented to person, place, time, situation. Cardiovascular: Patient's skin is warm and dry. Respiratory: Airway is patent. GI: Abdomen is round non-distended, Reports lower abdominal pain, nausea, vomiting. Derm: Skin is intact. Historical: - Allergies: 20:40 No Known Allergies; rv - PMHx: 20:40 Diabetes - IDDM; Hypertension; rv - Immunization history:: Adult Immunizations up to date. - Social history:: Smoking status: Patient denies any tobacco usage or history of. Screenin:41 Abuse screen: Denies threats or abuse. Denies injuries from another. Nutritional rv screening: No deficits noted. Tuberculosis screening: No symptoms or risk factors identified. Fall Risk None identified. Assessment: 20:54 General: Appears in no apparent distress. Behavior is calm, cooperative, appropriate ea for age. Pain: Complains of pain in right lower quadrant and left lower quadrant. Neuro: Level of Consciousness is awake, alert, obeys commands, Oriented to person, place, time. Cardiovascular: Patient's skin is warm and dry. Respiratory: Airway is patent Respiratory effort is even, unlabored, Respiratory pattern is regular, symmetrical. GI: Bowel sounds present X 4 quads. Abd is soft X 4 quads Abd is non tender X 4 quads Reports bloating, having two small BMs in the AM. Derm: Skin is pink, warm \T\ dry. 21:55 Reassessment: Patient and/or family updated on plan of care and expected duration. Pain ea level reassessed. Patient is alert, oriented x 3, equal unlabored respirations, skin warm/dry/pink. 22:45 Reassessment: Patient and/or family updated on plan of care and expected duration. Pain ea level reassessed. Patient is alert, oriented x 3, equal unlabored respirations, skin warm/dry/pink. 23:00 Reassessment: Patient and/or family updated on plan of care and expected duration. Pain ea level reassessed. Patient is alert, oriented x 3, equal unlabored respirations, skin warm/dry/pink. 02/14 00:24 Reassessment: Patient and/or family updated on plan of care and expected duration. Pain ea level reassessed. Patient is alert, oriented x 3, equal unlabored respirations, skin warm/dry/pink. 00:55 Reassessment: Patient and/or family updated on plan of care and expected duration. Pain ea level reassessed. Patient is alert, oriented x 3, equal unlabored respirations, skin warm/dry/pink. Returned from CT, ultrasound at bedside. 02:19 Reassessment: Patient and/or family updated on plan of care and expected duration. Pain ea level reassessed. Patient is alert, oriented x 3, equal unlabored respirations, skin warm/dry/pink. Report called to receiving nurse on second floor. Vital Signs: 02/13 20:38 BP 172 / 106; Pulse 75; Resp 16; Temp 97.8; Pulse Ox 100% ; Weight 104.78 kg; Height 5 rv ft. 10 in. (177.80 cm); Pain 3/10; 21:45 BP 150 / 90; Pulse 79; Resp 18; Pulse Ox 98% on R/A; ea 22:00 BP 152 / 93; Pulse 80; Resp 18; Pulse Ox 98% on R/A; ea 23:10 BP 152 / 93; Pulse 74; Resp 18; Pulse Ox 98% ; ea 02/14 00:50 BP 150 / 98; Pulse 75; Resp 18; Pulse Ox 100% on R/A; ea 01:50 BP 168 / 90; Pulse 80; Resp 18; Pulse Ox 98% on R/A; ea 02/13 20:38 Body Mass Index 33.14 (104.78 kg, 177.80 cm) rv ED Course: 02/13 20:28 Patient arrived in ED. ds1 20:37 Abby Pierce, RN is Primary Nurse. ea 20:39 Triage completed. rv 20:41 Arm band placed on Patient placed Patient notified of wait time. rv 20:53 Shaq Julian MD is Attending Physician. mh7 20:53 Missed attempt(s): 20 gauge in left antecubital area. Bleeding controlled, band aid ea applied, catheter tip intact. 20:54 Patient has correct armband on for positive identification. Placed in gown. Bed in low ea position. Call light in reach. 21:14 Lab(s) recollected, by ED staff, sent to lab. Inserted saline lock: 22 gauge in right ca1 antecubital area, using aseptic technique. Blood collected. 23:12 CT Abd/Pelvis - IV Contrast Only In Process Unspecified. EDMS 02/14 00:45 CT Chest For PE Angio In Process Unspecified. EDMS 01:09 US Extremity Venous Unilateral Ltd In Process Unspecified. EDMS 01:12 Ultrasound completed. Patient tolerated well. Notified ED Physician leidy. sg3 01:42 Saturnino Banerjee MD is Hospitalizing Provider. mh7 02:16 No provider procedures requiring assistance completed. Patient admitted, IV remains in ea place. Administered Medications: 02:01 Drug: Xarelto 15 mg Route: PO; rv 02:22 Follow up: Response: No adverse reaction ea Outcome: 01:43 Decision to Hospitalize by Provider. mh7 02:19 Condition: stable ea 02:19 Instructed on the need for admit, Demonstrated understanding of instructions. 02:34 Patient left the ED. ea Signatures: Dispatcher [facility]arm[facility]ai ds1 Abby Pierce, RN RN Daysi Richards sg3 Maximilian Dao, RN RN rv Marija, Neena, RN RN ca1 Shaq Julian MD MD 7 Corrections: (The following items were deleted from the chart) 02/13 20:54 20:53 Missed attempt(s): 20 gauge in left antecubital area. akil barnard 21:23 20:54 GI: Bowel sounds present X 4 quads. Abd is soft X 4 quads akil barnard
== END 2020-02-15 11:05 | disposition home or self-care (01) | DRG 392 ==
LOC: ER 20:15 → ERHOLD 02-15 01:49 → 2ND 02-15 02:21
PROVIDERS: ADMIT Internal Medicine; ATTEND Internal Medicine
DX: A05.9 Bacterial foodborne intoxication, unspecified (principal); I82.522 Chronic embolism and thrombosis of left iliac vein; E11.65 Type 2 diabetes mellitus with hyperglycemia; I10 Essential (primary) hypertension; Z79.4 Long term (current) use of insulin; Z79.01 Long term (current) use of anticoagulants; Z79.899 Other long term (current) drug therapy
CPT/HCPCS: 36415; 71275; 74177; 80048; 80076; 82947; 83690; 85025; 93971; 99284; J7799; Q9967

== ENCOUNTER 2024-10-27 14:56 | Inpatient (IN) | payer SELFPAY ==
[2024-10-27] MEDS ORDERED: ACETAMINOPHEN 500 MG TAB PO PRN (15:15)
[2024-10-27] MEDS ORDERED: ACETAMINOPHEN 650MG/RECT SUPP PR PRN (15:15)
[2024-10-27] MEDS ORDERED: ONDANSETRON 4 MG/2 ML VIAL IV PRN (15:15)
[2024-10-27] MEDS ORDERED: D50W 25 GM/50 ML SYRINGE IV PRN (15:31)
[2024-10-27] MEDS ORDERED: GLUCAGON 1 MG/VIAL IM PRN (15:31)
--- NOTE | 2024-10-27 15:40 | P.HP ---
Certification for Inpatient Patient admitted to: Inpatient With expected LOS: >2 Midnights Practitioner: I am a practitioner with admitting privileges, knowledge of patient current condition, hospital course, and medical plan of care. Services: Services provided to patient in accordance with Admission requirements found in Title 42 Section 412.3 of the Code of Federal Regulations Patient History Date of Service: 10/27/24 Reason for admission: DKA History of Present Illness: This is a 59 years old gentleman with past medical history notable for type 2 diabetes who presented to [facility] ED, arthritis complaining of malaise, nausea and vomiting for a few days, found to have DKA, anion gap 23, bicarb 13, random serum glucose 325, potassium 4.4, heavy glucosuria and ketonuria, patient was given regular insulin IV x 1 and started IV fluid and transferred to [facility] MICU for further evaluation and management of DKA. He was diagnosis with diabetes with blood sugar over 1200 over 4 years ago, has been treated with insulin, his blood sugar running low therefore his PCP advised him to stop insulin in April, he did not check blood sugar at home, he cannot remember his last hemoglobin A1c. He has been taking on new medication for hypertension and hypercholesterol for the past 6 months. He was taking rivaroxaban for a superficial venous thrombosis associated with the IV line in the past. Allergies No Known Allergies Allergy (Unverified 12/28/19 02:26) Home Medications: Insulin Glargine Human [Lantus*] 30 units SQ BEDTIME 30 Days #10 ml 12/31/19 Insulin Lispro [Humalog*] 2 unit SQ AC #7 ml 12/31/19 Metoprolol Tartrate [Lopressor*] 25 mg PO DAILY 30 Days #30 tab 12/31/19 Cholecalciferol (Vitamin D3) [Vitamin D3] 10,000 unit PO DAILY 02/15/20 Rivaroxaban [Xarelto*] 15 mg PO BID #14 tablet 02/15/20 Ubidecarenone [Co Q-10] 100 mg PO DAILY 02/15/20 Ubiquinol 100 mg PO DAILY 02/15/20 - Past Medical/Surgical History Diabetic: Yes -: IDDM -: HTN - Social History Alcohol use: No CD- Drugs: No Caffeine use: No Review of Systems Other: Consitutional; fever(-), chills (-), rigor(-), night sweat(-), unintentional weight loss(-), malaise (+) HEENT; diplopia (-), rhinorrhea (-), epistaxis (-), otorrhea (-), otalgia (-) Respiratory; shortness of breath (-), wheezing (-), cough (-), sputum (-), pleuritic chest pain (-) Cardiovascular; chest pain (-), peripheral edema (-), paroxysmal nocturnal dyspnea (-), orthopnea (-) Gastrointestinal; nausea (+), vomiting (+), abdominal pain (-), diarrhea (-), constipation (-), melena (-), hematochezia (-) Genitourinary; urinary frequency (-), dysuria (-), urgency (-), flank pain (-), gross hematuria (-), incontinence (-) Skin; rash (-), pruritus (-) ROAD MENDER; headache (-), paresthesia (-), numbness (-), paralysis (-) Physical Examination - Physical Exam Other Physical/Emotional Findings: - Physical Exam. General: Obese, not acutely ill looking, in no apparent distress,. HEENT: Normocephalic, atraumatic, nonicteric sclera, nonanemic conjunctive. Neck: Supple, without JVD or goiter or thyroid mass. Respiratory: Normal breathing effort, clear to auscultation bilaterally, no crackles no wheezing or rhonchi. Cardiovascular: Regular rate and rhythm, S1, S2 normal, no murmur no gallop. Gastrointestinal: Normal bowel sounds, nondistended, nontender, No ascites, , No masses, no hepatosplenomegaly. Extremities : No clubbing, No peripheral edema,. Integumentary: No rashes, petechia, suspected lesions. Lymphatics: No axilla or cervical lymphadenopathy. Neurology; alert awake oriented x3, no focal neurologic deficit, normal affection . mood and behavior. Assessment and Plan - Plan This is a 59 years old gentleman with past medical history notable for type 2 diabetes on metformin, hyperlipidemia on statin who presented to [facility] ED, [facility], complaining of malaise, nausea and vomiting for a few days, diagnosed with DKA and transferred to [facility] for further evaluation and management. He has been off insulin since April 2024 for the past 6 months. He has not been checking blood sugar at home either. #1 mild DKA Serum glucose 325, bicarb 13, anion gap 23, serum potassium 4.4, ketonuria, glucosuria at [facility] emergency room, The precipitating factor of DKA is unclear, likely noncompliant with medication, I will obtain chest x-ray, respiratory pathogen panel to look for infection Put him on DKA protocol, RI infusion, target blood sugar 1 50-250, check BMP every 4 hours, Accu-Chek every hour #2 history of hypertension Will resume his hypertensive regimen with holding parameter. DVT prophylaxis heparin subcu - Advance Directives Does patient have a Living Will: No Does patient have a Durable POA for Healthcare: No
[2024-10-27] MEDS ORDERED: SODIUM CHLORIDE 0.9% 10ML INJ IV PRN (15:42)
[2024-10-27] MEDS ORDERED: D10W 125 ML IV PRN (15:47)
[2024-10-27 15:53] VITALS: BMI 29.2
--- NOTE | 2024-10-27 16:12 | RAD REPORT ---
EXAM: Chest Single View HISTORY: DKA rule out pneumonia COMPARISON: 12/29/2019 FINDINGS: LUNGS/PLEURA: The lungs are clear. No pleural effusions or pneumothorax. No pulmonary edema. MEDIASTINUM: The mediastinal silhouette is within normal limits. CARDIAC: The cardiac silhouette is within normal limits. UPPER ABDOMEN: No significant abnormality. BONES: No acute abnormality. LINES/TUBES/OTHER: N/A IMPRESSION: No evidence of acute cardiopulmonary disease.
[2024-10-27 16:24] LABS: Anion Gap 20.6 mEq/L (5.0-15.0); Potassium 3.6 mEq/L (3.5-5.1)
[2024-10-27] MEDS: NACHLORIDE 0.45% 1,000 ML with POTASSIUM CL 20 MEQ IV SCH (17:03)
[2024-10-27] MEDS: INSULIN REGULAR, HUMAN 100 UNIT in NA CHLORIDE 0.9% 100 ML IV SCH (17:05)
[2024-10-27] MEDS: D5.45NS W/KCL 20MEQ 1,000 ML IV SCH (17:47)
[2024-10-27 20:18] VITALS: O2SAT 99
[2024-10-27 20:36] LABS: Anion Gap 18.7 mEq/L (5.0-15.0); Potassium 3.7 mEq/L (3.5-5.1)
[2024-10-27] MEDS: HEPARIN 5000 UNIT/ML 1 ML VIAL SQ SCH (21:03)
[2024-10-27 22:25] LABS: Specific Gravity > 1.030 (1.005-1.030); Sqamous Epithelial <5 /HPF (None Seen); Urine Bacteria None Seen /HPF (<20); Urine Bilirubin NEGATIVE (Negative); Urine Blood Negative (Negative); Urine Clarity Clear (Clear); Urine Color Light-Yellow (Yellow); Urine Culture Reflex Order NOT NEEDED; Urine Glucose 4+ (Over) (Negative); Urine Ketones 4+ (Over) (Negative); Urine Microscopic Reflex YN ORDER UMIC; Urine Mucus Slight /HPF (None Seen); Urine Nitrite NEGATIVE (Negative); Urine Protein 1+ (Negative); Urine RBC <5 /HPF (None Seen); Urine Urobilinogen Normal (Normal); Urine WBC <5 /HPF (<5); Urine WBC Clump Rare /HPF (None Seen); Urine pH 5.5 (5.0-7.0)
[2024-10-28 00:18] LABS: Anion Gap 12.2 mEq/L (5.0-15.0); Potassium 3.2 mEq/L (3.5-5.1)
[2024-10-28] MEDS: NA CHLORIDE 0.9% 100 ML ONE (00:54)
[2024-10-28] MEDS: KCL 20 MEQ/100 mL IVPB 20 MEQ/100 ML BAG IV SCH (00:54)
[2024-10-28 06:14] LABS: Absolute Eosinophils 0.1 K/uL (0-0.5); Absolute Lymphocytes (CBC) 1.7 K/uL (0.7-4.9); Absolute Monocytes 0.9 K/uL (0.1-1.3); Absolute Neutrophil 2.6 K/uL (1.8-8.0); Basophils % 0.6 % (0-1.3); Eosinophils % 1.4 % (0-4.4); Hematocrit 39.4 % (39.6-49.0); Hemoglobin 13.9 g/dL (13.6-17.9); Lymphocytes % 31.6 % (15.3-44.8); MCH 30.5 pg (27.0-35.0); MCHC 35.2 g/dL (32.0-36.0); MCV 86.7 fL (80-100); Monocytes % 17.5 % (3.3-12.3); Neutrophils % 48.9 % (41.7-73.7); Platelets 135 thou/uL (152-406); RBC Red Blood Cell Count 4.55 M/uL (4.33-5.43); Red Cell Distribution Width 13.2 % (12.1-15.2)
[2024-10-28] MEDS ORDERED: GLUCAGON 1 MG/VIAL IM PRN (06:26)
[2024-10-28] MEDS ORDERED: D10W 125 ML IV PRN (06:26)
[2024-10-28 06:40] LABS: Albumin 2.5 g/dL (3.4-5.0); Albumin/Globulin Ratio 0.7 (1.1-1.8); Anion Gap 12.5 mEq/L (5.0-15.0); Bilirubin Total 0.5 mg/dL (0.2-1.0); Globulin 3.4 g/dL (2.3-3.5); Magnesium 2.4 mg/dL (1.6-2.4); Potassium 3.5 mEq/L (3.5-5.1); Protein, Total 5.9 g/dL (6.4-8.2)
[2024-10-28 06:46] LABS: Phosphorus 1.4 mg/dL (2.5-4.9)
[2024-10-28] MEDS: INSULIN REGULAR (HUMAN) 100 UNIT/ML SQ SCH (07:30)
[2024-10-28] MEDS: INSULIN LISPRO 100 UNIT/1 ML SQ SCH (08:00)
[2024-10-28] MEDS: LOSARTAN POTASSIUM 50 MG TABLET PO SCH (08:23)
[2024-10-28] MEDS: INSULIN GLARGINE 100 UNIT/ML SQ SCH (08:23)
[2024-10-28] MEDS: ATORVASTATIN 20 MG TAB PO SCH (08:23)
[2024-10-28] MEDS: POTASSIUM PHOS IN 0.9 % NACL 15 MMOL/250 ML BAG IV ONE (08:24)
[2024-10-28] MEDS: PANTOPRAZOLE 40 MG INJ IVP SCH (08:25)
--- NOTE | 2024-10-28 09:55 | P.DS ---
Admission Date: 10/27/24 Discharge Date: 10/28/24 Disposition: ROUTINE DISCHARGE Discharge Condition: GOOD Reason for Admission: DKA Brief History of Present Illness: This is a 59 years old gentleman with past medical history notable for type 2 diabetes who presented to [facility] ED, arthritis complaining of malaise, nausea and vomiting for a few days, found to have DKA, anion gap 23, bicarb 13, random serum glucose 325, potassium 4.4, heavy glucosuria and ketonuria, patient was given regular insulin IV x 1 and started IV fluid and transferred to [facility] MICU for further evaluation and management of DKA. He was diagnosis with diabetes with blood sugar over 1200 over 4 years ago, has been treated with insulin, his blood sugar running low therefore his PCP advised him to stop insulin in April, he did not check blood sugar at home, he cannot remember his last hemoglobin A1c. He has been taking on new medication for hypertension and hypercholesterol for the past 6 months. He was taking rivaroxaban for a superficial venous thrombosis associated with the IV line in the past. Hospital Course: He was admitted in MICU and continued insulin infusion on DKA protocol, his anio n gap closed and bicarb increased to 20 the following morning. He was feeling much better and oral diet was started. His insulin regimen was transitioned to subcu Lantus 25 unit, 8 unit prandial insulin x 3 and insulin sliding scale. He is being discharged home. The plan is continue Lantus 25 to 30 unit at home once a day and self monitor blood sugar at home, follow-up with his PCP within 7 days of discharge. #1 mild DKA secondary to #2 Resolved, Serum glucose 325, bicarb 13, anion gap 23, serum potassium 4.4, ketonuria, glucosuria at [facility]anding emergency room, elevated serum beta hydroxy uric acid The precipitating factor of DKA is unclear, likely noncompliant with diabetic medication, clear chest x-ray, tested negative for influenza, COVID-19 and RSV by rapid antigen test, no clinical sign of infection or pancreatitis #2 uncontrolled type II diabetic Hemoglobin A1c on admission 12.2 #3 controlled hypertension Vital Signs/Physical Exam: Temp Pulse Resp BP Pulse Ox 97.6 F 87 14 119/75 100 10/28/24 08:00 10/28/24 09:00 10/28/24 09:00 10/28/24 09:00 10/28/24 09:00 Other Physical/Emotional Findings: - Physical Exam. General: Obese, not acutely ill looking, in no apparent distress,. HEENT: Normocephalic, atraumatic, nonicteric sclera, nonanemic conjunctive. Neck: Supple, without JVD or goiter or thyroid mass. Respiratory: Normal breathing effort, clear to auscultation bilaterally, no crackles no wheezing or rhonchi. Cardiovascular: Regular rate and rhythm, S1, S2 normal, no murmur no gallop. Gastrointestinal: Normal bowel sounds, nondistended, nontender, No ascites, , No masses, no hepatosplenomegaly. Extremities : No clubbing, No peripheral edema,. Integumentary: No rashes, petechia, suspected lesions. Lymphatics: No axilla or cervical lymphadenopathy. Neurology; alert awake oriented x3, no focal neurologic deficit, normal affection . mood and behavior. Laboratory Data at Discharge: WBC 5.40 thou/uL (4.3-10.9) 10/28/24 06:02 Hgb 13.9 g/dL (13.6-17.9) 10/28/24 06:02 Hct 39.4 % (39.6-49.0) L 10/28/24 06:02 Plt Count 135 thou/uL (152-406) L 10/28/24 06:02 Sodium 136 mEq/L (136-145) 10/28/24 06:02 Potassium 3.5 mEq/L (3.5-5.1) 10/28/24 06:02 BUN 8 mg/dL (7-18) 10/28/24 06:02 Creatinine 1.17 mg/dL (0.70-1.30) 10/28/24 06:02 Glucose 123 mg/dL (74-106) H 10/28/24 06:02 Phosphorus 1.4 mg/dL (2.5-4.9) L* 10/28/24 06:02 Magnesium 2.4 mg/dL (1.6-2.4) 10/28/24 06:02 Total Bilirubin 0.5 mg/dL (0.2-1.0) 10/28/24 06:02 AST 15 U/L (15-37) 10/28/24 06:02 ALT 23 U/L (16-61) 10/28/24 06:02 Alkaline Phosphatase 66 U/L (45-117) 10/28/24 06:02 Home Medications: Atorvastatin Calcium 20 mg PO DAILY 10/27/24 Losartan/Hydrochlorothiazide [Losartan-Hctz 100-25 mg Tab] 100 mg PO DAILY 10/27/24 Insulin Glargine,Hum.rec.anlog [Semglee] 25 unit SQ DAILY #10 ml 10/28/24 New Medications: Insulin Glargine,Hum.rec.anlog [Semglee] 25 unit SQ DAILY #10 ml Diet: ADA Activity: Ad jose f Followup: Lebron Banerjee MD [Primary Care Provider] -
[2024-10-28 12:54] VITALS: TEMP 97.4
[2024-10-28 13:09] VITALS: BP 120/66
== END 2024-10-28 14:30 | disposition home or self-care (01) | DRG 639 ==
LOC: 3RD-ICU 14:56
PROVIDERS: ADMIT Internal Medicine; ATTEND Internal Medicine
DX: E11.10 Type 2 diabetes mellitus with ketoacidosis without coma (principal); Z79.4 Long term (current) use of insulin; I10 Essential (primary) hypertension; E66.9 Obesity, unspecified; Z68.29 Body mass index [BMI] 29.0-29.9, adult; E78.5 Hyperlipidemia, unspecified; Z91.148 Patient's other noncompliance with medication regimen for other reason
CPT/HCPCS: 36415; 71045; 80048; 80053; 81001; 82010; 82947; 83036; 83735; 84100; 85025; 87804; 87807; J1644; J2470; J3480